=== PATIENT | male | born 1970 | race Hispanic/Latino ===

== ENCOUNTER 2017-08-29 01:09 | Emergency (ER) | payer BC ==
[2017-08-29] MEDS ORDERED: methylPREDNISolone Sod Succ/PF 125 MG/2 ML VIAL ONE (01:52)
[2017-08-29] MEDS ORDERED: Water For Inject, Bacteriostat 30 ML ONE (01:52)
[2017-08-29] MEDS ORDERED: Magnesium Sulfate 2 GM/100 ML BAG ONE (01:52)
[2017-08-29] MEDS ORDERED: Albuterol Sulfate 2.5 mg/3 ml Neb ONE (02:54)
[2017-08-29] MEDS ORDERED: cefTRIAXone\\ROCEPHIN 1 GM VIAL ONE (03:11)
--- NOTE | 2017-08-29 07:16 | RAD ---
PORTABLE AP CHEST: Date: 08/29/17 HISTORY: Dyspnea, wheezing, and productive cough. FINDINGS: The cardiac silhouette and pulmonary vasculature are within normal limits. Lungs are clear. Osseous structures are intact. There are linear densities seen in the medial right lung base, probably relat ed to superimposition of structures and vasculature. Lungs are otherwise clear. Osseous structures a re intact. IMPRESSION: No acute cardiopulmonary process. POS: [facility]
== END 2017-08-29 04:00 | disposition home or self-care (01) ==
LOC: ERS 01:09
DX: J45.901 Unspecified asthma with (acute) exacerbation (principal)
CPT/HCPCS: 71010; 93005; 94640; 94760; 96365; 96367; 96375; J0696; J2930; J3475; J7611; J7620

== ENCOUNTER 2018-05-08 14:29 | Outpatient (CLI) | payer BC | END 2018-05-08 14:30 | disposition home or self-care (01) | LOC: BICRAD 14:29 | PROVIDERS: ATTEND Family Medicine | DX: R10.11 Right upper quadrant pain (principal); R07.9 Chest pain, unspecified; R53.83 Other fatigue; E11.9 Type 2 diabetes mellitus without complications; K59.00 Constipation, unspecified | CPT/HCPCS: 71046; 74019 ==

== ENCOUNTER 2018-07-10 20:13 | Inpatient (IN) | payer BC ==
[2018-07-10 21:01] LABS: Hemoglobin 5.9 g/dL (14.0-18.0); Mean Corpuscular HGB CONC 34.3 g/dL (32.0-36.0); Mean Corpuscular Hemoglobin 35.6 pg (27.0-31.0); RBC Distribution Width 17.7 % (11.5-14.5); Red Blood Cell (RBC) Count 1.66 mill/uL (4.70-6.10); White Blood Cell (WBC) Count 4.4 thou/uL (4.8-10.8)
[2018-07-10 21:17] LABS: ALT (SGPT) 9 U/L (8-55); AST (SGOT) 16 U/L (5-34); Albumin 3.8 g/dL (3.5-5.0); Alkaline Phosphatase 68 U/L (40-150); Anion Gap 15 mmol/L (10-20); BUN (Urea Nitrogen) 16 mg/dL (8.9-20.6); Bilirubin, Total 0.5 mg/dL (0.2-1.2); Calc. Creatinine Clearance 0 mL/min (70-130); Calcium 9.3 mg/dL (7.8-10.44); Carbon Dioxide 29 mmol/L (22-29); Chloride 100 mmol/L (98-107); Estimated GFR-MDRD 86; Globulin 3.3 g/dL (2.4-3.5); Glucose 117 mg/dL (70-105); Protein, Total 7.1 g/dL (6.0-8.3); Sodium 140 mmol/L (136-145)
[2018-07-10 21:22] LABS: Band 6 % (5-11); Hypochromia MODERATE=16-30 cells (100X) (0-5/hpf); Lymphocytes 72 % (21-51); MDiff Complete? YES; Macrocytosis SLIGHT = 6-15 cells (100X) (0-5/hpf); Mean Platelet Volume 6.4 fL (7.4-10.4); Neutrophil 20 % (42-75); Nucleated RBC 0 % (0); PLT Morphology Comment Appears Decreased; Platelet Count 52 thou/uL (130-400); Polychromasia SLIGHT = 2-3 cells (100X) (0-2/hpf); Reactive Lymphocytes 2 % (0-10); Reflex for Review?? YES
[2018-07-11] MEDS ORDERED: Ondansetron ODT 4 MG TAB SL PRN
[2018-07-11] MEDS ORDERED: Acetaminophen 325 MG TAB PO PRN
[2018-07-11] MEDS ORDERED: Ondansetron HCl/PF 4 MG/2 ML Vial IVP PRN
[2018-07-11 01:59] LABS: INR-International Normal Ratio 1.2; PTT 43.9 SEC (22.9-36.1); Prothrombin Time 14.9 SEC (12.0-14.7)
[2018-07-11] MEDS ORDERED: ADMIXTURE FEE CHEMO IVP SCH (03:00)
[2018-07-11] MEDS ORDERED: PANTOPRAZOLE IVP SCH (03:00)
[2018-07-11] MEDS ORDERED: SODIUM CHLORIDE 0.9% IVP SCH (03:00)
[2018-07-11 05:53] LABS: Hemoglobin 8.4 g/dL (14.0-18.0)
[2018-07-11] MEDS ORDERED: Iopamidol 370 76% 100 ML VIAL ONE (08:48)
[2018-07-11] MEDS: Pantoprazole 40 MG VIAL IVP SCH ×2 (09:35→20:45)
[2018-07-11 10:18] LABS: Reticulocyte Count 3.6 % (0.5-1.5)
[2018-07-11 10:27] LABS: ALT (SGPT) 9 U/L (8-55); AST (SGOT) 12 U/L (5-34); Albumin 3.8 g/dL (3.5-5.0); Alkaline Phosphatase 64 U/L (40-150); Anion Gap 11 mmol/L (10-20); BUN (Urea Nitrogen) 15 mg/dL (8.9-20.6); Bilirubin, Total 0.7 mg/dL (0.2-1.2); Calc. Creatinine Clearance 115 mL/min (70-130); Calcium 9.5 mg/dL (7.8-10.44); Carbon Dioxide 27 mmol/L (22-29); Chloride 103 mmol/L (98-107); Estimated GFR-MDRD Greater than 90; Globulin 3.4 g/dL (2.4-3.5); Glucose 134 mg/dL (70-105); LDH 381 U/L (125-220); Potassium 3.9 mmol/L (3.5-5.1); Protein, Total 7.2 g/dL (6.0-8.3); Sodium 137 mmol/L (136-145)
[2018-07-11] MEDS: Dextrose 5 % And 0.9 % NaCl 1,000 ML IV SCH ×2 (10:37→20:44)
[2018-07-11 12:11] LABS: Hemoglobin 8.7 g/dL (14.0-18.0)
[2018-07-11 12:31] LABS: Iron 93 ug/dL (65-175); Iron Binding Capacity, Total 220 mcg/dL (261-462)
--- NOTE | 2018-07-11 12:36 | RAD ---
CHEST TWO VIEWS: HISTORY: Shortness of breath. COMPARISON: Chest radiograph from 2017. FINDINGS: The lungs are clear. No pneumothorax or effusion. The cardiac silhouette and mediastinal contour ar e within normal limits. IMPRESSION: No acute intrathoracic abnormality. POS: [facility]
--- NOTE | 2018-07-11 13:08 | CT ---
CT ABDOMEN AND PELVIS WITH CONTRAST: HISTORY: Anemia. Pancytopenia. COMPARISON: None. FINDINGS: There is atelectasis in the lower lobes. On the axial image, there appears to be a nodule in the lef t lung base (axial image 15), although this is likely reflective of a focal area of round atelectasis . Small volume perihepatic fluid. Small volume free fluid in the pelvis. There is some low grade flui d, retroperitoneal, along the left iliac vessels. There is a mildly prominent left external iliac ly mph node, measuring 8 mm in short axis. The common iliac lymph node measures 1 cm in short axis. Th e distal retroperitoneal and periaortic lymph nodes measure up to 8 mm in short axis. The spleen is enlarged, measuring almost 14 cm in size. The liver is unremarkable. Small volume fluid in the righ t paracolic gutter. The appendix is visualized and is normal. Abnormal bilateral common femoral lymph nodes are present, measuring up to 1.6 cm in size. Superfici al inguinal and deep inguinal lymph nodes are also present. No hydronephrosis. A cyst is present in the left kidney. Normal proximal small bowel rotation. The skeleton is unremarkable. IMPRESSION: 1. Abnormal deep pelvic, as well as inguinal lymph nodes, along with small volume retroperitoneal fl uid. Findings concerning for an underlying lymphoproliferative disorder, such as lymphoma. Testicul ar cancer could also be a possibility. Recommend correlation with a testicular examination. Histolo gical examination of the inguinal lymph nodes is recommended. 2. Small volume perihepatic ascites, as well as splenomegaly. This may be due to the patient's unde rlying lymphoproliferative disorder. CODE T POS: [facility]
[2018-07-11 13:14] LABS: Bilirubin Negative (Negative); Blood, Urine Negative (Negative); Clarity CLEAR (Clear); Glucose, Urine (Dipstick) Negative (Negative); Leukocyte Negative (Negative); Nitrite Negative (Negative); Protein, Urine (Dipstick) Negative (Neg-Trace)
[2018-07-11 13:17] LABS: Bacteria/HPF None Seen HPF (None Seen); Hyaline Casts/LPF 0-3 HYALINE CAST LPF (0-3 Hyaline); Pathc Cast-AUWi Flag 0.14 (0-2.49); RBC/HPF 0-3 HPF (0-3); Squamous Epithelial 0-3 HPF (0-3); WBC/HPF 0-3 HPF (0-3)
[2018-07-11 13:18] LABS: Specific Gravity, Urine 1.055 (1.002-1.036)
--- NOTE | 2018-07-11 13:46 | EKG ---
Test Reason : DIZZY,WEAK Blood Pressure : / mmHG Vent. Rate : 090 BPM Atrial Rate : 090 BPM P-R Int : 114 ms QRS Dur : 090 ms QT Int : 364 ms P-R-T Axes : 018 -02 020 degrees QTc Int : 445 ms Normal sinus rhythm Normal ECG Confirmed by FELICIA DOWLING, CHANTAL ([id number]), subeditor ELOY VALDEZ ([id number]) on 07/11/2018 1:45:49 PM Referred By: Confirmed By:CHANTAL DUARTE MD
[2018-07-11 14:03] LABS: ANA Symphony (Qualitative) Negative (Negative); dsDNA IgG Antibody 0.9 IU/mL (<10 Negative)
[2018-07-11 16:45] LABS: Hemoglobin 7.9 g/dL (14.0-18.0)
[2018-07-11 17:37] LABS: HIV (1/2) Antibody/Antigen Non-Reactive (NonReactive); HIV 1/2 INDEX 0.07 S/CO (<1.00)
[2018-07-11] MEDS ORDERED: Cyanocobalamin (Vitamin B-12) 1,000 MCG TAB PO SCH (18:00)
--- NOTE | 2018-07-11 19:21 | HP ---
CHIEF COMPLAINT: Generalized weakness. HISTORY OF PRESENT ILLNESS: The patient is a very pleasant 47-year-old male who presents to the ER w ith presence of generalized weakness, shortness of breath. The patient is a Australian speaking and the patient stated that this symptom started about a month ago. The patient stated that initially he pr esented with some right upper quadrant pain. At this time, he was told that he was a prediabetic and was not sent home with any medications. The patient was only given some stool softeners and also wa s given some pain medication and then was sent home. The patient then reappeared a week ago to dain nelson physician at [facility] for appearing very pale and also just not feeling well overall. At this time, blood test was done and the patient was stated that he was anemic and was sent home wi th iron supplements. The patient presents today to the hospital for worsening weakness and also appe ared to be more pale than usual. In the ER, he was found to have anemia of 5.8 and also his rectal e xam indicated positive Hemoccult. The patient denies any fevers; however, he did have some chills to day. The patient states that he has lost a few pounds; however, he is trying to eat more healthy sin ce he was told that he was a prediabetic. The patient denies any change in his stool. He took only 2 Advil for the abdominal pain that he had, this was a few days ago. The patient states that this barth s never happened to him before. He has never had a colonoscopy in the past. PAST MEDICAL HISTORY: History of asthma. SOCIAL HISTORY: He drinks 1-2 beer a month. Denies any drug use or smoking history. ALLERGIES: He has got no known allergies. CURRENT MEDICATIONS: The patient states that he does take an inhaler and also takes stool softener a nd pain medication which he does not know the name of. REVIEW OF SYSTEMS: All negative except for the ones mentioned above in the HPI. PHYSICAL EXAMINATION: VITAL SIGNS: Blood pressure 143/77, pulse 94, respiratory rate 18, temperature 98.3, saturation 99% on room air. GENERAL: He appeared to be pale. He is awake, alert, oriented x3, does not deny any distress. CARDIOVASCULAR: S1, S2 present. No murmurs, rubs or gallops. LUNGS: Clear to auscultation. No rhonchi or wheezes noted. ABDOMEN: Soft, nontender. Bowel sounds are present x2. EXTREMITIES: No edema. Pedal pulses present x2. LABORATORY DATA: Laboratory results are as of the following: WBC of 4.4, hemoglobin of 5.9, hematoc rit of 17.2, platelets of 52. He has lymphocytes of 72. Chemistry: Sodium of 137, potassium of 3.9 , BUN of 16, creatinine 0.93. His LFTs were normal. ASSESSMENT AND PLAN: The patient is a very pleasant 47-year-old male who presented to the hospital w ith generalized weakness. 1. Pancytopenia. The differential includes possible malignancy versus viral versus medication relat ed versus either vitamin B12 or iron deficiency. Given the patient's pancytopenia which is pretty si gnificant, I have no previous labs for comparison. We will get labs from [employer] to see what his baseline was. The patient also gets physicals every 6 months for his job. I will also get those re sults. We will check an LDH. We will check a reticular count. We will check a vitamin B12 level. We will check iron, folic acid, and ferritin level. We will also get a CT abdomen and pelvis. I am not sure, this is hemolytic. However, patient's LFTs and bilirubin are completely normal. We will a lso check haptoglobin to just make sure. We will also check an HIV and based on the CAT scan, we kathi l see if we can order more testing. Malignancy is definitely an issue. GI has been consulted. We w ill await further workup. 2. Significant anemia as MCV is 104, appears to be megaloblastic. We will check a vitamin B12 level and also iron studies and we will go from there. 3. Deep venous thrombosis prophylaxis. We will put the patient on sequential compression devices.
[2018-07-12 00:09] LABS: Hemoglobin 9.2 g/dL (14.0-18.0)
[2018-07-12] MEDS ORDERED: GoLYTELY 4,000 ml Bottle PO SCH (02:00)
--- NOTE | 2018-07-12 07:02 | CON ---
DATE OF CONSULTATION: 07/11/2018 REASON FOR CONSULTATION: Anemia, possible melena. CONSULTING PHYSICIAN: Dr. Nita Duffy HISTORY OF PRESENT ILLNESS: The patient is a 47-year-old male with past medical history of asthma wh o is presenting with complaints of weakness, shortness of breath and noted to have a decreased H&H on admission. The patient is Albanian speaking only, with some elements of the HPI difficult to underst and, but per patient, he states that he has been having increased generalized weakness and shortness of breath that has been present for approximately the last month. He states that it has been progres sively worsening over the same time period to the point where he visited his primary care physician's office who ordered routine blood tests, were noted to be anemic and sent home with iron supplements; however, he continued to have worsening weakness as well as the appearance of hematochezia x1 yester day, characterized as bright red blood per rectum that was present primarily only on the toilet paper , not necessarily in the toilet, but was also associated with increased straining in order to facilit ate having a bowel movement. He also endorses increased rectal pain that is sharp in nature and that would occur with most bowel movements within the last 2-3 days. Upon questioning these symptoms hav e never occurred to him in the past. He denies a family history of colon polyps or colon cancer and he himself has never had a colonoscopy in the past. Currently, denies any nausea, vomiting, fevers, chills, abdominal pain, hematemesis, dysphagia, odynophagia or weight loss. Of note, after he was started on the iron supplements as an outpatient by his primary care physician he did notice some darker colored stools, but did not necessarily endorse any black stools. REVIEW OF SYSTEMS: A 10-category review of systems was obtained with all responses negative except f or the pertinent positives as listed in the HPI. PAST MEDICAL HISTORY: As per HPI. PAST SURGICAL HISTORY: None. FAMILY HISTORY: Denies any GI malignancies. SOCIAL HISTORY: Denies any tobacco or illicit drug use. Drinks approximately 1-2 beers per month. OUTPATIENT MEDICATIONS: States that he takes an inhaler and a stool softener, but cannot remember th e names. ALLERGIES: No known drug allergies. PHYSICAL EXAMINATION: VITAL SIGNS: Temperature 99.2, pulse 72, blood pressure 121/68, respiratory rate 21, satting 98% gris m air. GENERAL: The patient is lying comfortably in bed in no acute distress. He is alert and oriented x4. NECK: Supple. No JVD noted. CARDIOVASCULAR: Regular rate and rhythm with no discernible murmurs, gallops or rubs. LUNGS: Clear to auscultation bilaterally, no discernible wheezes or rales. ABDOMEN: Normoactive bowel sounds, soft, nontender, nondistended. EXTREMITIES: No cyanosis, clubbing or edema. LABORATORY DATA: CBC with a white blood cell count of 4.4, hemoglobin 5.9, hematocrit 17.2, platelet s 52. Chemistry with a sodium of 137, potassium 3.9, chloride 103, CO2 of 27, BUN 15, creatinine 0.8 1, glucose 134, AST 12, ALT 9, alkaline phosphatase 64, total bilirubin 0.7. INR 1.2. Iron 93, ferr itin 890, TIBC 220, and reticulocyte count 3.6%. IMAGING DATA: CT of the abdomen and pelvis obtained on 07/11/2018 showed the presence of abnormal de ep pelvic as well as inguinal lymph nodes with small volume retroperitoneal fluid concerning for an u nderlying lymphoproliferative disorder such as lymphoma. They also noted small volume perihepatic as cites as well as splenomegaly which could also be due to the aforementioned lymphoproliferative disor delfina; however, the liver was unremarkable. There were some common femoral lymph nodes present as well . ASSESSMENT AND PLAN: The patient is a 47-year-old male with past medical history of asthma presentin g with increased weakness, fatigue, significant anemia as well as hematochezia concerning for possibl e GI bleeding source. 1. Anemia. The patient is presenting with worsening symptoms of fatigue and weakness that have been present for the last month, but progressively worsening over this time. However, he has also been h aving increased rectal pain for the last 5-6 days as well as the occurrence of hematochezia x1 yester day with significant anemia on labs today. There was also some question as part of the chart review that he had had some melenic type stools, but it seems to be more related to iron supplement administ ration which could definitely contribute to this particular issue. However, with these darker colore d stools with his hematochezia, it is unclear if there is a possible GI bleeding source contributing to the aforementioned anemia and may require endoscopic intervention. Currently the differential cou ld include an upper or lower GI bleeding source, although with the CT abdomen and pelvis showing mult iple enlarged lymph nodes throughout the body and lymphoma or leukemia is a more likely explanation. RECOMMENDATIONS: 1. We would continue to trend H&H and transfuse as necessary to maintain an H&H of 7/21. 2. Would continue to monitor for signs of GI bleeding. 3. Would proceed with both upper and lower endoscopy tomorrow for evaluation of the GI tract for pos sible bleeding source. We will make the patient n.p.o. at midnight with GoLYTELY prep in preparation for the colonoscopy. 4. Would consider consultation of the Hematology Service for evaluation of the macrocytic anemia as well as enlarged lymph nodes concerning for lymphoma/lymphoproliferative disorder. 5. If the above EGD and colonoscopy are negative for overt pathology, capsule endoscopy would not be indicated at this time, but rather would seek a non-GI source of anemia. 6. We will continue to follow. Please call with any questions.
[2018-07-12] MEDS ORDERED: Cyanocobalamin (Vitamin B-12) 1,000 MCG TAB PO SCH (09:00)
[2018-07-12] MEDS: Dextrose 5 % And 0.9 % NaCl 1,000 ML IV SCH ×3 (09:44→22:53)
[2018-07-12] MEDS: Pantoprazole 40 MG VIAL IVP SCH ×2 (09:44→21:02)
[2018-07-12 10:26] LABS: Hemoglobin 9.5 g/dL (14.0-18.0); Mean Corpuscular HGB CONC 35.4 g/dL (32.0-36.0); Mean Corpuscular Hemoglobin 34.2 pg (27.0-31.0); Mean Corpuscular Volume 96.6 fL (78.0-98.0); Mean Platelet Volume 7.5 fL (7.4-10.4); Platelet Count 51 thou/uL (130-400); RBC Distribution Width 18.3 % (11.5-14.5); Red Blood Cell (RBC) Count 2.77 mill/uL (4.70-6.10); White Blood Cell (WBC) Count 3.6 thou/uL (4.8-10.8)
[2018-07-12 10:41] LABS: ALT (SGPT) 8 U/L (8-55); AST (SGOT) 12 U/L (5-34); Albumin 4.1 g/dL (3.5-5.0); Alkaline Phosphatase 68 U/L (40-150); Anion Gap 11 mmol/L (10-20); BUN (Urea Nitrogen) 13 mg/dL (8.9-20.6); Bilirubin, Total 0.7 mg/dL (0.2-1.2); Calc. Creatinine Clearance 109 mL/min (70-130); Calcium 9.8 mg/dL (7.8-10.44); Carbon Dioxide 28 mmol/L (22-29); Chloride 101 mmol/L (98-107); Estimated GFR-MDRD Greater than 90; Globulin 3.7 g/dL (2.4-3.5); Glucose 129 mg/dL (70-105); Potassium 3.9 mmol/L (3.5-5.1); Protein, Total 7.8 g/dL (6.0-8.3); Sodium 136 mmol/L (136-145)
[2018-07-12 10:53] LABS: Anisocytosis SLIGHT = 6-15 cells (100X) (0-5/hpf); Band 6 % (5-11); Lymphocytes 62 % (21-51); MDiff Complete? YES; Monocytes 3 % (0-10); Neutrophil 26 % (42-75); Nucleated RBC 1 % (0); PLT Morphology Comment Appears Decreased; Polychromasia SLIGHT = 2-3 cells (100X) (0-2/hpf); Reactive Lymphocytes 2 % (0-10)
[2018-07-12] MEDS ORDERED: Cyanocobalamin 1000 MCG/ML VIAL IM SCH ×2 (11:30→16:45)
--- NOTE | 2018-07-12 13:12 | CON ---
DATE OF CONSULTATION: 07/12/2018 REASON FOR CONSULTATION: Anemia with lymphocytosis and lymphadenopathy. HISTORY OF PRESENT ILLNESS: Mr. Márquez is a pleasant 47-year-old Sami speaking only male who pres ented to the emergency room with weakness and shortness of breath started approximately 1 month ago a nd increased over the last few weeks. He also has had an 8 pound weight loss over these last few wee ks. In the emergency room, his white count was 4.4. His hemoglobin was 5.9 and his platelet count w as 52,000. He had 20% neutrophils and 72% lymphocytes. He was transfused 2 units of blood. The pat ient states he has seen bright red blood in his stool over the last few weeks. He saw his primary ca re 2 weeks ago and was started on oral iron for anemia. He had iron studies and B12 level drawn here , his B12 was low at 209. His iron studies were normal. He has been started on B12 injections. The patient admits to occasional night sweats. Denies any fever or chills. Abdominal CT performed show ed abnormal pelvic lymph nodes. He also had a small volume perihepatic ascites as well as mild splen omegaly. GI has seen the patient and is planning endoscopy today. To assist with it, we were asked to see the patient to assist with diagnosis. PAST MEDICAL HISTORY: 1. Asthma. 2. Recent diagnosis of anemia. PAST SURGICAL HISTORY: None. ALLERGIES: No known drug allergies. HOME MEDICATIONS: 1. Inhaler. 2. Oral iron and stool softener. FAMILY HISTORY: No history of lymphoma or GI malignancy. SOCIAL HISTORY: He is , lives with his spouse. Social drinker, drinking occasional beer. No alcohol or illicit drug use. REVIEW OF SYSTEMS: CONSTITUTIONAL: Denies fever, positive for chills and night sweats and recent weight loss. EYES: No blurred or double vision. ENT: No pain, hoarseness, sore throat, or dysphagia. CARDIOVASCULAR: No chest pain, palpitations or syncope. RESPIRATORY: Positive for shortness of breath, no dyspnea on exertion or orthopnea. GASTROINTESTINAL: No nausea, vomiting, diarrhea, constipation or abdominal pain. Positive for poor appetite. GENITOURINARY: No dysuria or hematuria. MUSCULOSKELETAL: No joint or back pain. SKIN: No rash or pruritus. HEMATOLOGIC: Positive for bleeding, no bruising or clotting. NEUROLOGIC: Positive for weakness, no headache, numbness, tingling or seizure activity. PSYCHIATRIC: No anxiety or depression. PHYSICAL EXAMINATION: VITAL SIGNS: Temperature is 98.1, pulse is 77, respiratory rate 18, BP is 131/71, 95% on room air. GENERAL: Well-developed, well-nourished male in no acute distress. HEENT: Normocephalic, atraumatic. Pupils equal and reactive to light. NECK: Supple. CARDIOVASCULAR: Regular rate and rhythm. LUNGS: Clear. ABDOMEN: Soft, nontender, bowel sounds are positive. No palpable organomegaly. EXTREMITIES: No clubbing, cyanosis or edema. SKIN: No rash. HEMATOLOGIC: No petechia or purpura. LYMPHATIC: He has palpable right inguinal lymph nodes. No other lymphadenopathy noted. NEUROLOGIC: Nonfocal. PSYCHIATRIC: The patient is alert and oriented and appropriate. PERTINENT LABORATORY DATA AND IMAGING DATA: Current WBCs 3.6, hemoglobin 9.5, hematocrit 26.7, plate let count 51,000, 26% neutrophils, 6% bands, 64% lymphocytes. Retic is 3.6. PT is 14.9, INR is 1.2, PTT is 43.9. Sodium is 136, potassium 3.9, chloride 101, CO2 is 28, BUN is 13, creatinine 0.84, sarai cium 9.8, ferritin is 893, bilirubin 0.7, AST is 12, ALT is 9, alkaline phosphatase is 64. LDH is 38 1. Serum total protein is 7.2, albumin 3.8. AFP is negative. HCG is negative, B12 209. Urine is n egative. YESI is normal as his HIV. Radiology per HPI. IMPRESSION: 1. Pancytopenia. 2. B12 deficiency. 3. Lymphocytosis with right inguinal lymphadenopathy. 4. Possible gastrointestinal bleed. DISCUSSION: Patient's B12 will be repeated with iron injections. He has undergone prepped for endos copy which will be this afternoon, also done flow cytometry on peripheral blood. We will also have [facility] to evaluate the patient for possible lymph node biopsy of his right inguinal chain. F urther recommendations will be based on all the above results. Thank you for the consult. We will follow him closely.
--- NOTE | 2018-07-12 14:17 | PDOC.PN ---
- Subjective Encounter Start Date: 07/12/18 Encounter Start Time: :30 Subjective: pt up in bed no complains - Objective Vital Signs & Weight: Vital Signs (12 hours) Temp Pulse Resp BP Pulse Ox 07/12/18 07:51 98.1 F 77 18 95 07/12/18 07:50 98.1 F 77 18 131/71 95 07/12/18 04:00 98.4 F 75 20 136/82 95 Weight Admit Weight 162 lb 1.6 oz Weight 159 lb 4.8 oz I&O: 07/11/18 07/12/18 07/13/18 06:59 06:59 06:59 Intake Total 1114 3670 Balance 1114 3670 Result Diagrams: 07/12/18 10:01 07/12/18 10:01 Phys Exam - Physical Examination Neck: no nodes, no JVD, supple, full ROM Respiratory: no wheezing, no rales, no rhonchi, wheezing present, clear to auscultation bilateral Cardiovascular: RRR, no significant murmur, no rub, gallop, irregular Gastrointestinal: soft, non-tender, no distention, positive bowel sounds Dx/Plan (1) Pancytopenia Code(s): D61.818 - OTHER PANCYTOPENIA Status: Acute (2) Melena Code(s): K92.1 - MELENA Status: Acute - Plan pt going for egd/colonoscopy -: will go for biopsy with concerns for lymphoma -: hh stable for now -: will replace vit b12 * . Review of Systems - Review of Systems Respiratory: negative: Cough, Dry, Shortness of Breath, Hemoptysis, SOB with Excertion, Pleuritic Pain, Sputum, Wheezing Cardiovascular: negative: chest pain, palpitations, orthopnea, paroxysmal nocturnal dyspnea, edema, light headedness, other Genitourinary: negative: Dysuria, Frequency, Incontinence, Hematuria, Retention , Other - Medications/Allergies Allergies/Adverse Reactions: Allergies Allergy/AdvReac Type Severity Reaction Status Date / Time No Known Allergies Allergy Unverified 07/10/18 23:51 Medications: Current Medications Cyanocobalamin (Vitamin B-12) 1,000 mcg IM DAILY [facility] Dextrose/Sodium Chloride (D5 0.9% Ns) 1,000 mls @ 100 mls/hr IV .Q10H [facility] Last Admin: 07/12/18 09:44 Dose: Not Given Pantoprazole Sodium (Protonix) 40 mg IVP BID [facility] Last Admin: 07/12/18 09:44 Dose: 40 mg Sodium Chloride (Flush - Normal Saline) 10 ml IVF Q12HR [facility] Last Admin: 07/12/18 09:44 Dose: 10 ml Sodium Chloride (Flush - Normal Saline) 10 ml IVF PRN PRN PRN Reason: Saline Flush
[2018-07-12] MEDS ORDERED: Lidocaine 1% PF 5 ML VIAL ONE (14:27)
[2018-07-12] MEDS ORDERED: PROPOFOL 200 MG/20 ML VIAL ONE (14:27)
--- NOTE | 2018-07-12 15:56 | CON ---
DATE OF CONSULTATION: 07/12/2018 REASON FOR CONSULTATION: Lymphadenopathy. HISTORY: Mr. Márquez is a 47-year-old previously healthy man who presented to the emergency room feel ing weak and short of breath. He was found to be severely anemic and was admitted for transfusion an d workup. He reported a history of blood in his stool and he underwent an EGD and colonoscopy today that was unremarkable. He was incidentally noted to have some lymphadenopathy in the inguinal and fe moral areas as well as retroperitoneally, and a lymph node biopsy has been requested for this reason. The patient has not noticed any swollen lymph nodes, so he is unaware of how long they have been pr esent. He has had night sweats and about 10 pounds of weight loss. He was previously seen at the [facility] for his feelings of low energy and was diagnosed with prediabetes, but he is not on any m edications for this. He was then diagnosed with anemia and given iron supplements, but his anemia barth s worsened. PAST MEDICAL HISTORY: Asthma. SOCIAL HISTORY: He drinks occasionally, does not smoke or use any drugs. ALLERGIES: He has no known drug allergies. OUTPATIENT MEDICATIONS: As an inhaler as needed and stool softener. REVIEW OF SYSTEMS: Ten system review of systems is negative except per HPI. FAMILY HISTORY: Negative for malignancy, only known medical issue is diabetes in his father. PHYSICAL EXAMINATION: VITAL SIGNS: The patient has been afebrile since his admission. Heart rate is 83, respirations 18, 98% saturated on room air, blood pressure 122/83. GENERAL: Reveals a healthy appearing 47-year-old man, in no acute distress. He is not flushed or to xic in appearance. He is not jaundiced or icteric. He is not pale or diaphoretic. HEENT: Unremarkable. NECK: Supple without lymphadenopathy or thyroid nodules. HEART: Regular in its rate and rhythm without murmurs, rubs or gallops. LUNGS: Clear to auscultation bilaterally with good air entry. ABDOMEN: Soft, nontender, nondistended, no palpable hepatosplenomegaly. EXTREMITIES: Warm and well perfused. He has palpable inguinal lymph nodes on both sides, left great er than right. No axillary or supraclavicular lymphadenopathy. LABORATORY AND X-RAY FINDINGS: CT images are reviewed and I agree with the written report. LABORATORY DATA: White count is low at 3.6, H&H are 95 and 26.7, this is after 2 units transfusion f or an initial H&H of 5.9 and 17.2, platelet count is 51. He does have a predominance of lymphocytes on his peripheral smear with 62% lymphocytes and 26% neutrophils. PTT is 43.9 and INR is 1.2, BUN an d creatinine are normal at 13 and 0.84. Blood glucose is slightly elevated at 129. LFTs are normal. LDH is high at 381. B12 is low at 209. AST is 2.1 and hCG is less than 1. ASSESSMENT: Anemia and bilateral inguinal and retroperitoneal intra-abdominal lymphadenopathy. He h as had weight loss and night sweats and there is concern for lymphoma. GI workup is negative thus fa r schedule for tomorrow for a left inguinal lymph node biopsy. Inherent risks of the procedure include but are not limited to bleeding, infection, risks of anesthesia, damage to nearby structures , and lymphedema. He understands and accepts these risks and wishes to proceed. All of his and his 's questions were answered. The interview was conducted using a Salvadorean speech and language assistant.
--- NOTE | 2018-07-12 16:04 | OP ---
DATE OF PROCEDURE: 07/12/2018 PREOPERATIVE DIAGNOSES: Hemoccult positive stools, anemia secondary to gastrointestinal blood loss, lymphadenopathy. PROCEDURE IN DETAIL: After informed consent was obtained, the patient was placed in the left lateral decubitus position. Anesthesia administered per the Anesthesia Department. Forward-viewing endosco pe was inserted into esophagus under direct visualization with ease and passed to the second portion of the duodenum with ease. Second portion of the duodenum and duodenal bulb were normal. The pyloru s, antrum, body, fundus and cardia were normal. Retroflexion of stomach was normal. Esophagus was n ormal throughout. ASSESSMENT: Normal esophagogastroduodenoscopy. RECOMMENDATIONS: Proceed with colonoscopy. PROCEDURE IN DETAIL: After informed consent was obtained, the patient was placed in the left lateral decubitus position. Anesthesia was administered per the Anesthesia Department. Perianal inspection and rectal exam revealed some thickening of the perianal skin, possibly secondary to previous perian al process, but this seems to be scarred and nothing acute or active. The scope was passed to the ce cum with ease. The cecum, ileocecal valve and appendiceal orifice were normal. The prep was excelle nt. The ascending, transverse, descending, sigmoid and rectum were normal. Retroflexion in the rect um was normal. ASSESSMENT: 1. Thickened perianal skin secondary to scarring from prior perianal abscess or other process, but n o active abnormalities at this time. 2. Normal colonoscopy. RECOMMENDATIONS: Proceed with workup of lymphadenopathy.
--- NOTE | 2018-07-12 16:56 | ULT ---
ULTRASOUND TESTICULAR BILATERAL 07/12/18 HISTORY: Pain. Anemia. Pancytopenia. COMPARISON: CT abdomen prior day. FINDINGS: Real time riggins scale, color doppler and spectral analysis of the testicles was performed. The right testicle measures 3.5 x 2.0 x 4.5 cm and left testicle measures 2.2 x 4.2 x 3.1 cm. There is hypervascularity to both testicles. No abnormal mass. There are abnormal lymph nodes of both inguinal canals. IMPRESSION: 1. Hypervascular testicles bilaterally. May be sequela of bilateral orchitis. No underlying mass . 2. Abormal lymph nodes. POS: H
[2018-07-13 06:21] LABS: ALT (SGPT) 9 U/L (8-55); AST (SGOT) 10 U/L (5-34); Albumin 3.9 g/dL (3.5-5.0); Alkaline Phosphatase 64 U/L (40-150); Anion Gap 13 mmol/L (10-20); BUN (Urea Nitrogen) 14 mg/dL (8.9-20.6); Bilirubin, Total 0.5 mg/dL (0.2-1.2); Calc. Creatinine Clearance 106 mL/min (70-130); Calcium 9.6 mg/dL (7.8-10.44); Carbon Dioxide 24 mmol/L (22-29); Estimated GFR-MDRD Greater than 90; Globulin 3.8 g/dL (2.4-3.5); Glucose 108 mg/dL (70-105); Potassium 3.9 mmol/L (3.5-5.1); Protein, Total 7.7 g/dL (6.0-8.3); Sodium 140 mmol/L (136-145)
[2018-07-13 06:40] LABS: Chloride 107 mmol/L (98-107)
[2018-07-13 06:42] LABS: Band 11 % (5-11); Hemoglobin 9.5 g/dL (14.0-18.0); Lymphocytes 69 % (21-51); MDiff Complete? YES; Mean Corpuscular HGB CONC 34.5 g/dL (32.0-36.0); Mean Corpuscular Hemoglobin 33.7 pg (27.0-31.0); Mean Corpuscular Volume 97.8 fL (78.0-98.0); Mean Platelet Volume 7.6 fL (7.4-10.4); Monocytes 4 % (0-10); Neutrophil 15 % (42-75); Nucleated RBC 1 % (0); PLT Morphology Comment Appears Decreased; Platelet Count 55 thou/uL (130-400); RBC Distribution Width 18.2 % (11.5-14.5); Reactive Lymphocytes 1 % (0-10); Red Blood Cell (RBC) Count 2.82 mill/uL (4.70-6.10); White Blood Cell (WBC) Count 3.9 thou/uL (4.8-10.8)
[2018-07-13] MEDS: Pantoprazole 40 MG VIAL IVP SCH ×2 (09:02→19:58)
[2018-07-13] MEDS: Cyanocobalamin 1000 MCG/ML VIAL IM SCH (09:02)
[2018-07-13] MEDS ORDERED: Bupivacaine/Epinephrine 0.25% 30 ML VIAL ONE (11:22)
[2018-07-13] MEDS ORDERED: Fentanyl 100 MCG/2 ML VIAL ONE (11:27)
[2018-07-13] MEDS ORDERED: Dexamethasone 20 MG/5 ML VIAL ONE (11:44)
[2018-07-13] MEDS ORDERED: ePHEDrine/0.9% NaCl/PF SYRINGE 50 mg/10 ml ONE (11:44)
[2018-07-13] MEDS ORDERED: PROPOFOL 200 MG/20 ML VIAL ONE (11:44)
[2018-07-13] MEDS ORDERED: Lidocaine 1% PF 5 ML VIAL ONE (11:44)
[2018-07-13] MEDS ORDERED: Ondansetron HCl/PF 4 MG/2 ML Vial ONE (11:44)
[2018-07-13 12:21] VITALS: BMI 24.3
[2018-07-13] MEDS: Dextrose 5 % And 0.9 % NaCl 1,000 ML IV SCH (12:35)
[2018-07-13] MEDS ORDERED: Promethazine HCl 25 MG/ML VIAL IM PRN (12:47)
[2018-07-13] MEDS ORDERED: Promethazine HCl 25 MG/ML VIAL SLOW IVP PRN (12:47)
[2018-07-13] MEDS ORDERED: HYDROmorphone 2 MG/ML VIAL SLOW IVP PRN (12:47)
[2018-07-13] MEDS ORDERED: Ondansetron HCl/PF 4 MG/2 ML Vial IVP PRN (12:47)
[2018-07-13] MEDS: Acetaminophen 325 MG TAB PO PRN (14:37)
--- NOTE | 2018-07-13 15:10 | PDOC.PN ---
- Subjective Encounter Start Date: 07/13/18 Encounter Start Time: 09:00 Subjective: pt up in bed no complains - Objective Vital Signs & Weight: Vital Signs (12 hours) Temp Pulse Resp BP BP BP Pulse Ox 07/13/18 13:30 98.8 F 83 16 120/67 97 07/13/18 08:30 97.8 F 70 18 100/66 94 L 07/13/18 05:31 97.7 F 74 15 113/67 93 L Weight Admit Weight 162 lb 1.6 oz Weight 155 lb 3.2 oz I&O: 07/12/18 07/13/18 07/14/18 06:59 06:59 06:59 Intake Total 3670 1055 Balance 3670 1055 Result Diagrams: 07/13/18 05:01 07/13/18 05:01 Phys Exam - Physical Examination Neck: no nodes, no JVD, supple, full ROM Respiratory: no wheezing, no rales, no rhonchi, wheezing present, clear to auscultation bilateral Cardiovascular: RRR, no significant murmur, no rub, gallop, irregular Musculoskeletal: no edema, pulses present, edema present Neurological: non-focal, normal sensation, moves all 4 limbs Psychiatric: normal affect, A&O x 3 -: no redness or pain on palpation of testicles, Dx/Plan (1) Pancytopenia Code(s): D61.818 - OTHER PANCYTOPENIA Status: Acute (2) Melena Code(s): K92.1 - MELENA Status: Acute (3) Lymphadenopathy Code(s): R59.1 - GENERALIZED ENLARGED LYMPH NODES Status: Acute (4) Megaloblastic anemia Code(s): D53.1 - OTHER MEGALOBLASTIC ANEMIAS, NOT ELSEWHERE CLASSIFIED Status : Acute (5) Megaloblastic anemia due to B12 deficiency Code(s): D53.1 - OTHER MEGALOBLASTIC ANEMIAS, NOT ELSEWHERE CLASSIFIED Status : Acute - Plan will continue vit b12, pt going for lymphnode excision -: testicular ultrasound indicated hypervascular testicles -: physically no erythem or pain noted on testicles -: will not tx with abx for now. alpha feto and hcg negative * . Review of Systems - Review of Systems Cardiovascular: negative: chest pain, palpitations, orthopnea, paroxysmal nocturnal dyspnea, edema, light headedness, other Gastrointestinal: negative: Nausea, Vomiting, Abdominal Pain, Diarrhea, Constipation, Melena, Hematochezia, Other Genitourinary: negative: Dysuria, Frequency, Incontinence, Hematuria, Retention , Other - Medications/Allergies Allergies/Adverse Reactions: Allergies Allergy/AdvReac Type Severity Reaction Status Date / Time No Known Allergies Allergy Unverified 07/10/18 23:51 Medications: Current Medications Acetaminophen (Tylenol) 325 mg PO Q4H PRN PRN Reason: Headache/Fever or Pain Acetaminophen (Tylenol) 650 mg PO Q6H PRN PRN Reason: Pain 2ND LINE Last Admin: 07/13/18 14:37 Dose: 650 mg Cyanocobalamin (Vitamin B-12) 1,000 mcg IM DAILY [facility] Last Admin: 07/13/18 09:02 Dose: 1,000 mcg Fentanyl (Pacu-Sublimaze) 50 mcg SLOW IVP Q10MIN PRN PRN Reason: Moderate to Severe Pain (6-10) Stop: 07/13/18 15:48 Hydromorphone HCl (Pacu-Dilaudid) 0.5 mg SLOW IVP Q10MIN PRN PRN Reason: Moderate to Severe Pain (6-10) Stop: 07/13/18 15:48 Dextrose/Sodium Chloride (D5 0.9% Ns) 1,000 mls @ 100 mls/hr IV .Q10H [facility] Last Admin: 07/13/18 12:35 Dose: Not Given Morphine Sulfate (Pacu-Morphine Sulfate) 4 mg SLOW IVP ONE PRN PRN Reason: Moderate to Severe Pain (6-10) Stop: 07/13/18 15:48 Ondansetron HCl (Pacu-Zofran) 4 mg IVP ONE PRN PRN Reason: Nausea/Vomiting Stop: 07/13/18 15:48 Pantoprazole Sodium (Protonix) 40 mg IVP BID [facility] Last Admin: 07/13/18 09:02 Dose: 40 mg Promethazine HCl (Pacu-Phenergan) 6.25 mg SLOW IVP ONE PRN PRN Reason: Nausea/Vomiting Stop: 07/13/18 15:48 Promethazine HCl (Pacu-Phenergan) 6.25 mg IM ONE PRN PRN Reason: Nausea/Vomiting Stop: 07/13/18 15:48 Sodium Chloride (Flush - Normal Saline) 10 ml IVF Q12HR [facility] Last Admin: 07/13/18 09:01 Dose: 10 ml Sodium Chloride (Flush - Normal Saline) 10 ml IVF PRN PRN PRN Reason: Saline Flush
[2018-07-14] MEDS: Acetaminophen 325 MG TAB PO PRN ×2 (01:30→18:59)
[2018-07-14] MEDS: Dextrose 5 % And 0.9 % NaCl 1,000 ML IV SCH ×3 (03:41→20:58)
[2018-07-14] MEDS: Pantoprazole 40 MG VIAL IVP SCH ×2 (07:39→20:54)
[2018-07-14] MEDS: Cyanocobalamin 1000 MCG/ML VIAL IM SCH (07:39)
--- NOTE | 2018-07-14 10:52 | PDOC.GSPN ---
Surgery Progress Note: Subj - Subjective Narrative: Left groin incision healing well. Can follow up w me in clinic in 2 wks or prn. Fine to discharge from surgical standpoint. Surgery Progress Note: Obj - Vital signs Vital signs: Vital Signs - Most Recent Temp Pulse Resp BP Pulse Ox 97.9 F 72 18 104/62 94 L 07/14/18 07:35 07/14/18 07:35 07/14/18 07:35 07/14/18 07:35 07/14/18 07:35 Surgery Progress Note: Results - Labs Result Diagrams: 07/13/18 05:01 07/13/18 05:01
[2018-07-14 11:15] LABS: ALT (SGPT) 9 U/L (8-55); AST (SGOT) 8 U/L (5-34); Albumin 3.6 g/dL (3.5-5.0); Alkaline Phosphatase 50 U/L (40-150); Anion Gap 13 mmol/L (10-20); BUN (Urea Nitrogen) 18 mg/dL (8.9-20.6); Bilirubin, Total 0.3 mg/dL (0.2-1.2); Calc. Creatinine Clearance 108 mL/min (70-130); Carbon Dioxide 22 mmol/L (22-29); Chloride 109 mmol/L (98-107); Estimated GFR-MDRD Greater than 90; Globulin 3.1 g/dL (2.4-3.5); Glucose 148 mg/dL (70-105); Protein, Total 6.7 g/dL (6.0-8.3); Sodium 140 mmol/L (136-145)
[2018-07-14 11:19] LABS: Band 12 % (5-11); Hemoglobin 8.6 g/dL (14.0-18.0); Lymphocytes 65 % (21-51); MDiff Complete? YES; Mean Corpuscular Hemoglobin 34.9 pg (27.0-31.0); Mean Corpuscular Volume 99.8 fL (78.0-98.0); Mean Platelet Volume 7.5 fL (7.4-10.4); Metamyelocyte 1 % (0-0); Neutrophil 22 % (42-75); Nucleated RBC 2 % (0); Platelet Count 44 thou/uL (130-400); Red Blood Cell (RBC) Count 2.45 mill/uL (4.70-6.10); Toxic Granulation SLIGHT; White Blood Cell (WBC) Count 3.4 thou/uL (4.8-10.8)
--- NOTE | 2018-07-14 19:55 | PDOC.PN ---
- Subjective Encounter Start Date: 07/14/18 Encounter Start Time: 12:30 Subjective: pt up in bed complains of pain to his right groin area - Objective Vital Signs & Weight: Vital Signs (12 hours) Temp Pulse Resp BP BP Pulse Ox 07/14/18 15:47 97.5 F L 70 18 107/58 L 95 07/14/18 11:45 99.3 F 70 18 108/60 94 L Weight Admit Weight 162 lb 1.6 oz Weight 156 lb 12.8 oz I&O: 07/13/18 07/14/18 07/15/18 06:59 06:59 06:59 Intake Total 1055 1560 1920 Balance 1055 1560 1920 Result Diagrams: 07/14/18 10:27 07/14/18 10:27 Phys Exam - Physical Examination HEENT: PERRLA, moist MMs, sclera anicteric, TM's clear, oral pharynx no lesions , 2+ tonsils Neck: no nodes, no JVD, supple, full ROM Respiratory: no wheezing, no rales, no rhonchi, wheezing present, clear to auscultation bilateral Cardiovascular: RRR, no significant murmur, no rub, gallop, irregular Gastrointestinal: soft, non-tender, no distention, positive bowel sounds groin incision intact Dx/Plan (1) Pancytopenia Code(s): D61.818 - OTHER PANCYTOPENIA Status: Acute (2) Melena Code(s): K92.1 - MELENA Status: Acute (3) Lymphadenopathy Code(s): R59.1 - GENERALIZED ENLARGED LYMPH NODES Status: Acute (4) Megaloblastic anemia Code(s): D53.1 - OTHER MEGALOBLASTIC ANEMIAS, NOT ELSEWHERE CLASSIFIED Status : Acute (5) Megaloblastic anemia due to B12 deficiency Code(s): D53.1 - OTHER MEGALOBLASTIC ANEMIAS, NOT ELSEWHERE CLASSIFIED Status : Acute - Plan pt having pain around his left groin area -: possible discharge on monday once biopsy results have obtained * . Review of Systems - Review of Systems Respiratory: negative: Cough, Dry, Shortness of Breath, Hemoptysis, SOB with Excertion, Pleuritic Pain, Sputum, Wheezing Cardiovascular: negative: chest pain, palpitations, orthopnea, paroxysmal nocturnal dyspnea, edema, light headedness, other Gastrointestinal: negative: Nausea, Vomiting, Abdominal Pain, Diarrhea, Constipation, Melena, Hematochezia, Other Genitourinary: Other - Medications/Allergies Allergies/Adverse Reactions: Allergies Allergy/AdvReac Type Severity Reaction Status Date / Time No Known Allergies Allergy Unverified 07/10/18 23:51 Medications: Current Medications Acetaminophen (Tylenol) 325 mg PO Q4H PRN PRN Reason: Headache/Fever or Pain Acetaminophen (Tylenol) 650 mg PO Q6H PRN PRN Reason: Pain 2ND LINE Last Admin: 07/14/18 18:59 Dose: 650 mg Cyanocobalamin (Vitamin B-12) 1,000 mcg IM DAILY [facility] Last Admin: 07/14/18 07:39 Dose: 1,000 mcg Dextrose/Sodium Chloride (D5 0.9% Ns) 1,000 mls @ 100 mls/hr IV .Q10H [facility] Last Admin: 07/14/18 07:39 Dose: 1,000 mls Pantoprazole Sodium (Protonix) 40 mg IVP BID [facility] Last Admin: 07/14/18 07:39 Dose: 40 mg Sodium Chloride (Flush - Normal Saline) 10 ml IVF Q12HR [facility] Last Admin: 07/14/18 08:46 Dose: Not Given Sodium Chloride (Flush - Normal Saline) 10 ml IVF PRN PRN PRN Reason: Saline Flush
[2018-07-15] MEDS: Acetaminophen 325 MG TAB PO PRN ×4 (05:53→21:11)
[2018-07-15] MEDS: Dextrose 5 % And 0.9 % NaCl 1,000 ML IV SCH (08:09)
[2018-07-15] MEDS: Cyanocobalamin 1000 MCG/ML VIAL IM SCH (08:17)
[2018-07-15] MEDS: Pantoprazole 40 MG VIAL IVP SCH ×2 (08:17→21:12)
[2018-07-15 09:44] LABS: Anion Gap 11 mmol/L (10-20); BUN (Urea Nitrogen) 18 mg/dL (8.9-20.6); Calc. Creatinine Clearance 104 mL/min (70-130); Calcium 8.8 mg/dL (7.8-10.44); Carbon Dioxide 24 mmol/L (22-29); Chloride 110 mmol/L (98-107); Estimated GFR-MDRD Greater than 90; Glucose 140 mg/dL (70-105); Potassium 3.8 mmol/L (3.5-5.1); Sodium 141 mmol/L (136-145)
[2018-07-15 09:59] LABS: Band 12 % (5-11); Hemoglobin 8.1 g/dL (14.0-18.0); Lymphocytes 57 % (21-51); MDiff Complete? YES; Mean Corpuscular HGB CONC 34.5 g/dL (32.0-36.0); Mean Corpuscular Hemoglobin 34.4 pg (27.0-31.0); Mean Corpuscular Volume 99.7 fL (78.0-98.0); Mean Platelet Volume 7.6 fL (7.4-10.4); Metamyelocyte 2 % (0-0); Monocytes 2 % (0-10); Neutrophil 26 % (42-75); Nucleated RBC 2 % (0); PLT Morphology Comment Appears Decreased; Platelet Count 40 thou/uL (130-400); Polychromasia SLIGHT = 2-3 cells (100X) (0-2/hpf); RBC Distribution Width 17.7 % (11.5-14.5); Red Blood Cell (RBC) Count 2.35 mill/uL (4.70-6.10); White Blood Cell (WBC) Count 2.4 thou/uL (4.8-10.8)
[2018-07-15] MEDS ORDERED: Senokot S 8.6-50 MG TAB PO SCH (11:00)
[2018-07-15] MEDS ORDERED: Polyethylene Glycol 3350 17 GM Packet PO SCH (11:00)
--- NOTE | 2018-07-15 13:19 | PDOC.PN ---
- Subjective Encounter Start Date: 07/15/18 Encounter Start Time: 10:30 Subjective: pt up in bed has pain to his left groin area - Objective Vital Signs & Weight: Vital Signs (12 hours) Temp Pulse Resp BP BP Pulse Ox 07/15/18 11:24 97.7 F 72 20 126/70 100 07/15/18 08:00 98 F 70 16 119/69 95 07/15/18 04:00 98.1 F 72 16 118/66 95 Weight Admit Weight 162 lb 1.6 oz Weight 145 lb 7 oz I&O: 07/14/18 07/15/18 07/16/18 06:59 06:59 06:59 Intake Total 1560 2930 120 Balance 1560 2930 120 Result Diagrams: 07/15/18 09:20 07/15/18 09:20 Phys Exam - Physical Examination Neck: no nodes, no JVD, supple, full ROM Respiratory: no wheezing, no rales, no rhonchi, wheezing present, clear to auscultation bilateral Cardiovascular: RRR, no significant murmur, no rub, gallop, irregular Gastrointestinal: soft, non-tender, no distention, positive bowel sounds Musculoskeletal: no edema, pulses present, edema present Dx/Plan (1) Pancytopenia Code(s): D61.818 - OTHER PANCYTOPENIA Status: Acute (2) Melena Code(s): K92.1 - MELENA Status: Acute (3) Lymphadenopathy Code(s): R59.1 - GENERALIZED ENLARGED LYMPH NODES Status: Acute (4) Megaloblastic anemia Code(s): D53.1 - OTHER MEGALOBLASTIC ANEMIAS, NOT ELSEWHERE CLASSIFIED Status : Acute (5) Megaloblastic anemia due to B12 deficiency Code(s): D53.1 - OTHER MEGALOBLASTIC ANEMIAS, NOT ELSEWHERE CLASSIFIED Status : Acute - Plan pt's hh continues to trend down -: pt's pathlogy results are pending -: pt has no pcp will make sure to get appointment with onc prior to discharge * . Review of Systems - Review of Systems Respiratory: negative: Cough, Dry, Shortness of Breath, Hemoptysis, SOB with Excertion, Pleuritic Pain, Sputum, Wheezing Cardiovascular: negative: chest pain, palpitations, orthopnea, paroxysmal nocturnal dyspnea, edema, light headedness, other Gastrointestinal: negative: Nausea, Vomiting, Abdominal Pain, Diarrhea, Constipation, Melena, Hematochezia, Other - Medications/Allergies Allergies/Adverse Reactions: Allergies Allergy/AdvReac Type Severity Reaction Status Date / Time No Known Allergies Allergy Unverified 07/10/18 23:51 Medications: Current Medications Acetaminophen (Tylenol) 325 mg PO Q4H PRN PRN Reason: Headache/Fever or Pain Last Admin: 07/15/18 05:53 Dose: 325 mg Acetaminophen (Tylenol) 650 mg PO Q6H PRN PRN Reason: Pain 2ND LINE Last Admin: 07/15/18 05:55 Dose: 650 mg Cyanocobalamin (Vitamin B-12) 1,000 mcg IM DAILY [facility] Last Admin: 07/15/18 08:17 Dose: 1,000 mcg Pantoprazole Sodium (Protonix) 40 mg IVP BID [facility] Last Admin: 07/15/18 08:17 Dose: 40 mg Polyethylene Glycol (Miralax) 17 gm PO DAILY [facility] Senna/Docusate Sodium (Senokot S) 1 tab PO BID [facility] Sodium Chloride (Flush - Normal Saline) 10 ml IVF Q12HR [facility] Last Admin: 07/15/18 08:17 Dose: 10 ml Sodium Chloride (Flush - Normal Saline) 10 ml IVF PRN PRN PRN Reason: Saline Flush
[2018-07-15] MEDS: Senokot S 8.6-50 MG TAB PO SCH (21:12)
[2018-07-16 06:50] LABS: Anisocytosis SLIGHT = 6-15 cells (100X) (0-5/hpf); Band 12 % (5-11); Eosinophils 1 % (0-10); Hemoglobin 8.3 g/dL (14.0-18.0); Lymphocytes 61 % (21-51); MDiff Complete? YES; Mean Corpuscular HGB CONC 34.5 g/dL (32.0-36.0); Mean Corpuscular Volume 98.3 fL (78.0-98.0); Mean Platelet Volume 7.7 fL (7.4-10.4); Monocytes 1 % (0-10); Neutrophil 25 % (42-75); PLT Morphology Comment Appears Decreased; Platelet Count 44 thou/uL (130-400); RBC Distribution Width 17.6 % (11.5-14.5); Red Blood Cell (RBC) Count 2.44 mill/uL (4.70-6.10); White Blood Cell (WBC) Count 2.7 thou/uL (4.8-10.8)
[2018-07-16] MEDS: Cyanocobalamin 1000 MCG/ML VIAL IM SCH (08:18)
[2018-07-16] MEDS: Pantoprazole 40 MG VIAL IVP SCH (08:19)
[2018-07-16] MEDS: Senokot S 8.6-50 MG TAB PO SCH (08:19)
[2018-07-16] MEDS ORDERED: Polyethylene Glycol 3350 17 GM Packet PO SCH (09:00)
[2018-07-16] MEDS ORDERED: Hydrocortisone 1% Cream 30 GM TUBE TOP PRN (12:15)
[2018-07-16 15:39] VITALS: BP 131/68; TEMP 99
--- NOTE | 2018-07-16 18:48 | DIS ---
CHIEF COMPLAINT: Generalized weakness. DISCHARGE DIAGNOSES: 1. Pancytopenia. 2. Generalized lymphadenopathy. 3. Generalized weakness. 4. Megaloblastic anemia. HOSPITAL COURSE: The patient is a very pleasant 47-year-old male who presented to the hospital with generalized weakness. Initially, he was found to have a hemoglobin of 5.9. The patient also was fou nd to have pancytopenia. HIV test was done, which was negative. The patient was given 2 units of NV BCs. His H&H went up to 9 and has been sustaining around 8-9. The patient in the meantime had an ab domen and pelvis CAT scan with contrast, which indicated significant lymphadenopathy throughout the a bdomen concerning for possible lymphoma. The patient underwent an EGD and colonoscopy by GI, initial ly for possible melena. The EGD endoscopy did not indicate any acute abnormalities. The patient als o then underwent a testicular ultrasound given the abnormal findings in the abdominal CT. Testicular ultrasound indicated hypervascular testicle bilaterally, may be a sequela of bilateral orchitis. No underlying mass. The patient did not have any leukocytosis or any pain upon physical examination of his genitals. The patient then was seen by Hematology/Oncology for low vitamin B12. At this time, the patient was started on intramuscular vitamin B12 shots and also Surgery was consulted for excisio n of his lymph node. The patient underwent excision of his lymph node on his left femoral area, ic h was sent for pathology. Results are pending. The patient currently is denying any complaints. Hi s H&H have been stable. He will be discharged home. He will follow up with Oncology as outpatient. I have used an plant utilities engineer to explain to the patient and the that he will need to follow up [facility] Oncology as an outpatient. Tried to see if he had an appointment set up; however, the office today is closed. The patient also will be given oral vitamin B12. MEDICATIONS: The patient's home medications were as of the followin. Multivitamin daily. 2. Hydrocortisone cream 15 t.i.d. p.r.n. around his rectal area for pain and vitamin B12, 2500 mcg s ublingual daily. Again, the patient will follow up with his primary care and also with Oncology. PHYSICAL EXAMINATION: VITAL SIGNS: Temperature 99, pulse 83, respirations 16, saturation 99% on room air, blood pressure 1 31/68. GENERAL: He is awake, alert, oriented x3, does not appear in any distress. CARDIOVASCULAR: S1, S2 present. No murmurs, rubs, or gallops. ABDOMEN: Soft, nontender. Bowel sounds are present x2. EXTREMITIES: No edema. Incision on his left groin area appears stable.
[2018-07-17 10:12] LABS: Fungus Stain Final report (.)
--- NOTE | 2018-07-23 19:47 | PDOC.OP ---
Operative Note - Operative Note Operative Note: PROCEDURE: Left inguinal lymph node excisional biopsy DATE OF PROCEDURE: 07/13/28 SURGEON: Devon Tavares M.D. PREOPERATIVE DIAGNOSES: Lymphadenopathy with suspected lymphoma POSTOPERATIVE DIAGNOSIS: Lymphadenopathy with suspected lymphoma HISTORY: Patient with fairly extensive lymphadenopathy including both inguinal areas. He is suspected to have lymphoma and a lymph node biopsy was requested for diagnostic purposes. PROCEDURE IN DETAIL: After informed consent was obtained the patient was taken to the operating room and placed in supine position. Anesthesia was administered and he was prepped and draped in the standard sterile fashion. Local anesthesia was infused the skin and subcutaneous tissues overlying the easily palpable left inguinal lymph node. A skin incision was made and dissection carried down to the lymph node which was dissected free circumferentially. The hilum was clipped and ligated as were several small vessels and the lymph node excised. A small portion was removed and sent to microbiology for standard, fungal, and AFB cultures and the remainder was sent fresh to pathology for histopathology and flow. The wound was irrigated and hemostasis verified. The subcutaneous tissues were reapproximated with 3-0 Monocryl and the skin was closed with 4-0 Monocryl suture. Dermabond dressings were placed and the patient was taken to the recovery room in good condition. Estimated blood loss was minimal. There were no complications. Specimen is left inguinal lymph node.
== END 2018-07-16 16:18 | disposition home or self-care (01) | DRG 804 ==
LOC: ERS 20:13 → 2NO 23:22
PROVIDERS: ADMIT Hospitalist; ATTEND Hospitalist
PROC: 0DJ08ZZ Inspection of Upper Intestinal Tract, Via Natural or Artificial Opening Endoscopic (ICD-10-PCS; principal; 2018-07-12)
PROC: 0DJD8ZZ Inspection of Lower Intestinal Tract, Via Natural or Artificial Opening Endoscopic (ICD-10-PCS; 2018-07-12)
PROC: 07TJ4ZZ Resection of Left Inguinal Lymphatic, Percutaneous Endoscopic Approach (ICD-10-PCS; 2018-07-12)
DX: D61.818 Other pancytopenia (principal)
CPT/HCPCS: 36415; 36416; 36430; 71046; 74177; 76870; 80048; 80053; 81001; 82105; 82274; 82607; 82728; 83010; 83540; 83550; 83615; 84702; 85018; 85025; 85046; 85060; 85610; 85730; 86038; 86225; 86850; 86900; 86901; 87070; 87102; 87116; 87205; 87206; 87389; 88184; 88307; 93005; A4216; C9113; J1100; J2001; J2405; J2704; J3010; J3420; J7050; P9016

== ENCOUNTER 2018-09-13 18:52 | Emergency (ER) | payer BC | END 2018-09-13 21:00 | disposition home or self-care (01) | LOC: ERS 18:52 | DX: T82.898A Other specified complication of vascular prosthetic devices, implants and grafts, initial encounter (principal); J45.909 Unspecified asthma, uncomplicated | CPT/HCPCS: 99283 ==

== ENCOUNTER 2018-09-28 18:52 | Observation (INO) | payer BC ==
[~2018-09-28 18:52] MED LIST: ISOVUE-370 76%-LOCM 1 ML ONE
[2018-09-28 19:30] LABS: Hemoglobin 10.2 g/dL (14.0-18.0); Mean Corpuscular HGB CONC 33.5 g/dL (32.0-36.0); Mean Corpuscular Hemoglobin 31.8 pg (27.0-31.0); Mean Corpuscular Volume 94.8 fL (78.0-98.0); Mean Platelet Volume 7.7 fL (7.4-10.4); Platelet Count 142 thou/uL (130-400)
[2018-09-28] MEDS ORDERED: Ondansetron PF 4 MG/2 ML Vial ONE (19:31)
[2018-09-28] MEDS ORDERED: Morphine 2 MG/ML SYRINGE ONE ×2 (19:31→21:09)
[2018-09-28 19:48] LABS: ALT (SGPT) 16 U/L (8-55); AST (SGOT) 11 U/L (5-34); Albumin 3.9 g/dL (3.5-5.0); Alkaline Phosphatase 108 U/L (40-150); Anion Gap 13 mmol/L (10-20); BUN (Urea Nitrogen) 14 mg/dL (8.9-20.6); Bilirubin, Total 0.7 mg/dL (0.2-1.2); CK (CPK) Less than 9 U/L (30-200); Calc. Creatinine Clearance 0 mL/min (70-130); Calcium 9.2 mg/dL (7.8-10.44); Carbon Dioxide 29 mmol/L (22-29); Chloride 100 mmol/L (98-107); Estimated GFR-MDRD Greater than 90; Globulin 2.6 g/dL (2.4-3.5); Glucose 166 mg/dL (70-105); Potassium 4.1 mmol/L (3.5-5.1); Protein, Total 6.5 g/dL (6.0-8.3); Sodium 138 mmol/L (136-145)
[2018-09-28 19:49] LABS: Anisocytosis SLIGHT = 6-15 cells (100X) (0-5/hpf); Band 1 % (5-11); Hypersemented Neutrophil SLIGHT; Lymphocytes 9 % (21-51); MDiff Complete? YES; Neutrophil 90 % (42-75); Ovalocytes SLIGHT = 2-5 cells (100X) (0-1/hpf); PLT Morphology Comment Appears Adequate; Polychromasia SLIGHT = 2-3 cells (100X) (0-2/hpf)
[2018-09-28 19:52] LABS: CKMB 0.5 ng/mL (0-6.6); Troponin I Less than 0.010 ng/mL (< 0.028)
--- NOTE | 2018-09-28 21:02 | RAD ---
FRONTAL RADIOGRAPH CHEST: 09/28/2018 HISTORY: Chest pain. COMPARISON: 09/29/2017 FINDINGS: A left upper extremity PICC is noted, with the distal tip overlying the region of the lower right atr ium. There is no pneumothorax, pleural fluid, focal consolidation, or alveolar edema. IMPRESSION: Left upper extremity peripherally inserted central catheter, terminating in the region of the inferio r right atrium. No focal consolidation or alveolar edema. POS: [facility]
--- NOTE | 2018-09-28 21:18 | CT ---
CT PULMONARY ANGIOGRAM WITH IV CONTRAST AND 3D POSTPROCESSIN09/28/18 HISTORY: 47-year-old male with chest pain. FINDINGS: There is good contrast opacification of the pulmonary arterial vasculature without filling defects to suggest pulmonary embolism. The thoracic aorta is opacified without aneurysmal dissection. No pleura l or pericardial effusions are seen. There are mild ground glass infiltrates in the lung bases poste riorly. There are degenerative changes in the spine. IMPRESSION: No CT evidence of pulmonary embolism. POS: [facility]
[2018-09-28 22:31] LABS: Troponin I Less than 0.010 ng/mL (< 0.028)
[2018-09-28] MEDS ORDERED: Ondansetron PF 4 MG/2 ML Vial IVP PRN (22:45)
[2018-09-28] MEDS ORDERED: HYDROcodone/Acetaminophen 5/325 mg Tablet PO PRN ×2 (22:45)
[2018-09-28] MEDS ORDERED: Acetaminophen 325 MG TAB PO PRN (22:45)
[2018-09-28] MEDS ORDERED: Ondansetron ODT 4 MG TAB SL PRN (22:45)
[2018-09-28] MEDS ORDERED: HYDROcodone/Acetaminophen 5/325 mg Tablet ONE (23:11)
[2018-09-28] MEDS: Sodium Chloride 0.9% 1,000 ML IV SCH (23:18)
[2018-09-29 01:04] LABS: Troponin I Less than 0.010 ng/mL (< 0.028)
[2018-09-29 01:07] VITALS: BMI 24.5
[2018-09-29] MEDS ORDERED: Ondansetron ODT 8 MG TAB PO PRN (01:44)
[2018-09-29] MEDS ORDERED: Nortriptyline 10 MG CAP ONE (02:30)
[2018-09-29] MEDS ORDERED: Potassium Chloride 20 MEQ TAB ONE (08:42)
[2018-09-29] MEDS: Potassium Chloride 20 MEQ TAB PO SCH (08:56)
[2018-09-29] MEDS: ISAVUCONAZONIUM SULFATE 186 MG PO SCH (09:01)
[2018-09-29] MEDS: Sodium Chloride 0.9% 1,000 ML IV SCH ×2 (09:37→15:15)
[2018-09-29] MEDS ORDERED: Sterile Water 10 ML VIAL IVP SCH (10:37)
[2018-09-29] MEDS ORDERED: Activase 2 MG VIAL CATH SCH (10:37)
[2018-09-29] MEDS ORDERED: Regadenoson 0.4 MG/5 ML SYRINGE ONE (11:00)
[2018-09-29] MEDS ORDERED: valACYclovir 500 MG TAB PO SCH (11:15)
[2018-09-29] MEDS ORDERED: Ketorolac Tromethamine 30 MG/ML VIAL IVP SCH (12:00)
[2018-09-29 12:13] LABS: Anion Gap 11 mmol/L (10-20); BUN (Urea Nitrogen) 13 mg/dL (8.9-20.6); Calc. Creatinine Clearance 134 mL/min (70-130); Calcium 9.4 mg/dL (7.8-10.44); Carbon Dioxide 28 mmol/L (22-29); Chloride 100 mmol/L (98-107); Estimated GFR-MDRD Greater than 90; Glucose 136 mg/dL (70-105); Potassium 4.9 mmol/L (3.5-5.1); Sodium 134 mmol/L (136-145)
[2018-09-29 13:51] LABS: Hemoglobin 8.9 g/dL (14.0-18.0); Mean Corpuscular HGB CONC 34.5 g/dL (32.0-36.0); Mean Corpuscular Hemoglobin 33.2 pg (27.0-31.0); Mean Corpuscular Volume 96.3 fL (78.0-98.0); Mean Platelet Volume 7.6 fL (7.4-10.4); Platelet Count 64 thou/uL (130-400); RBC Distribution Width 17.2 % (11.5-14.5); Red Blood Cell (RBC) Count 2.69 mill/uL (4.70-6.10); White Blood Cell (WBC) Count 0.7 thou/uL (4.8-10.8)
[2018-09-29 14:06] LABS: Anisocytosis SLIGHT = 6-15 cells (100X) (0-5/hpf); Band 1 % (5-11); Dohle Bodies SLIGHT; Lymphocytes 17 % (21-51); MDiff Complete? YES; Monocytes 3 % (0-10); Neutrophil 76 % (42-75); Ovalocytes SLIGHT = 2-5 cells (100X) (0-1/hpf); PLT Morphology Comment Appears Decreased; Polychromasia SLIGHT = 2-3 cells (100X) (0-2/hpf); Reactive Lymphocytes 1 % (0-10); Tear Drops SLIGHT = 2-5 cells (100X) (0-1/hpf)
--- NOTE | 2018-09-29 15:49 | NM ---
CARDIAC SPECT: CLINICAL HISTORY: 47-year-old male with chest pain. TECHNIQUE: A myocardial perfusion scan was performed using the single isotope one day protocol with technetium-9 9m sestamibi. 9 mCi were injected intravenously for the rest exam followed by 30 mCi for the stress e xam. Pharmacologic stress with Lexiscan was monitored and interpreted by Dr. iDnero. FINDINGS: Homogeneous tracer distribution is seen in the myocardial segments on stress and rest images without fixed or reversible defects. GATED SPECT LVEF: 58%. WALL MOTION EXAM: Normal. IMPRESSION: Normal myocardial perfusion scan. POS: [facility]
[2018-09-29] MEDS ORDERED: Dexamethasone 4 MG TAB PO SCH (20:45)
[2018-09-29] MEDS ORDERED: Sodium Chloride 0.9% 1,000 ML IV SCH (20:45)
[2018-09-29] MEDS: Amoxicillin/Potassium Clav 875 MG TAB PO SCH (21:16)
[2018-09-29] MEDS: Famotidine 20 MG TAB PO SCH (21:16)
--- NOTE | 2018-09-29 21:39 | HP ---
DATE OF ADMISSION: 09/29/2018 PRIMARY CARE PHYSICIAN: Dr. Lalo Morin. CHIEF COMPLAINT: Chest pain. HISTORY OF PRESENT ILLNESS: Mr. Willi Leiva is a pleasant 47-year-old male with a past medical his tory of leukemia, undergoing chemotherapy with last chemotherapy 4 days ago, and history of asthma. He had presented to the ER [facility] with complaints of chest pain that h ad started since last night after eating dinner. He states pain is in left upper chest along with ramirez bsternal area. He states the pain does radiate to his back and it is sharp in nature. He states whe n the pain came on, it was 10/10; however, over the last 12 hours, pain has slightly improved. In ER, he was given aspirin oral 324 mg, 2 doses of IV morphine 4 mg, and IV Zofran 4 mg for nausea, h e had tolerated this regimen well and this improved his symptoms. He was transferred up to the floor on telemetry. He was placed in observation status for chest pain rule out. He was seen by myself medhat trinidad or later that morning with several family members at bedside, his daughter was at bedside byron gardiner. He states that his pain is 5/10, currently in left upper chest, that radiates to his back. He denies any other symptoms. He had recently undergone chemotherapy for leukemia. He states his on cologist is Dr. White with [facility]. He denies any fever or chills, diaphoresis, or shortness of breath. He was started on prophylactic medications including antibiotics, antivirals, and antifungals. He was supposed to follow up with his oncologist for a second round of chemotherapy next week. PAST MEDICAL HISTORY: Asthma and leukemia, patient was unaware of kind and could not tell me, but he is undergoing chemotherapy. SOCIAL HISTORY: He drinks 1-2 beers roughly a month, he denies any smoking or drug use. ALLERGIES: No known drug allergies at this time. CURRENT HOME MEDICATIONS: 1. Dexamethasone 40 mg p.o. daily. 2. Valtrex 500 mg p.o. daily. 3. Potassium chloride 20 mEq p.o. daily. 4. Zofran ODT 8 mg p.o. q.8 hours p.r.n. nausea. 5. Levothyroxine 500 mg p.o. daily. 6. Augmentin 875/125 mg p.o. b.i.d. 7. Cresemba 186 mg capsule, 2 capsules p.o. daily. REVIEW OF SYSTEMS: CONSTITUTIONAL: Denies any fever or chills. Denies any weight loss or weight ga in. EYES: Denies any eye pain, eye discharge or vision changes. ENT: Denies any ear, nose or thro at symptoms including nosebleeds, loss of hearing, ringing in the ears or sore throat. CARDIOVASCULA R: Does report some left-sided chest pain that radiates to his back, denies any murmur. RESPIRATORY : Denies any cough or shortness of breath. GASTROINTESTINAL: Denies any abdominal pain, constipati on, diarrhea, or vomiting. GENITOURINARY: Denies any frequency, urgency, dysuria or blood in urine. MUSCULOSKELETAL: Denies any fall or injury. NECK: Denies any neck pain. SKIN: No rashes or ski n lesions. NEUROLOGIC: Denies any headache, weakness. PHYSICAL EXAMINATION: VITAL SIGNS: BP 125/72, pulse 86, respirations 14, temperature 99.6, O2 saturation 98% on room air. On admission, last outpatient BP 88/54, pulse 84, respirations 16, temperature 98.2 and O2 saturatio ns 96% on room air. GENERAL: He is awake, alert, and oriented x3. No acute distress noted. Several family members are at bedside, daughter at bedside translating. HEENT: Head is atraumatic, normocephalic. Pupils are round and reactive to light. Extraocular musc les are intact. Hearing is intact to conversation. Speaks Malay, daughter is at bedside translati ng. Oropharynx is clear without any erythema or exudates. Moist mucous membranes noted. CARDIOVASCULAR: Positive S1, S2. No murmurs, rubs or gallops. LUNGS: Clear to auscultation bilaterally. No rhonchi. No wheezes noted. ABDOMEN: Soft, nontender. Bowel sounds present. EXTREMITIES: No edema. Pedal and radial pulses 2+ bilaterally. Strength 5+ in both upper and lower extremities. Moves all 4 extremities. SKIN: Warm and dry, and intact. No lesions or bruising noted. PSYCHIATRIC: Normal mood and affect. Denies any suicidal or homicidal ideation. NEUROLOGIC: Cranial nerves II-XII intact. No focal deficits noted. Strength is 5+ bilaterally in u pper and lower extremities. LABORATORY DATA: WBC 0.7, RBC 2.69, hemoglobin 8.9, platelet 64. Sodium 134, potassium is 4.9, GFR greater than 90, creatinine 0.65. Troponin less than 0.010 x3, CK-MB 0.5, creatine kinase less than 9, alkaline phosphatase 108. DIAGNOSTIC IMAGING: Portable chest x-ray showed left upper extremity peripheral central catheter. N o focal consolidation or edema noted. CTA of chest showed no CT evidence of pulmonary embolism. ASSESSMENT AND PLAN: The patient is a very pleasant 47-year-old male who had presented to the hospit al with chest pain. 1. Chest pain. We will rule out cardiac, serial troponins less than 0.010 x3, we will obtain a stre ss test. We will continue patient on normal home medications. We will monitor vital signs closely, due to noted hypotension, he currently remains asymptomatic at this time. We will continue on IV gen tle hydration with normal saline. Further medical management is pending patient's progress and lula p. 2. Leukocytopenia, patient has a history of leukemia, currently undergoing chemotherapy. We will pl jonelle in isolation for underlying risk for neutropenia, we will place consult for Oncology for further evaluation and management. Did contact Dr. Castaneda, she had recommended ruling out chest pain and no further workup needed at this time. We will likely discharge the patient with close followup as out patient for further chemotherapy. 3. Hypotension, as above we will continue with gentle hydration and closely monitor symptoms, he is currently asymptomatic. 4. History of leukemia, currently undergoing chemotherapy. We will continue on prophylactic medicat ions including antiviral, antifungal, and antibiotics. We will continue dexamethasone and keep in is olation for neutropenic risk. Oncology Services will be consulted, but as above no further workup at this time. 5. Deep venous thrombosis prophylaxis with Lovenox. 6. Gastrointestinal prophylaxis with Pepcid 20 mg p.o. b.i.d. and Zofran as needed for nausea. 7. Code status: FULL CODE. DISPOSITION: Pending patient's workup and progress. As above we will rule out patient's symptoms of chest pain and likely discharge home with close outpatient followup with oncologist and continued emotherapy. No further workup for neutropenia at this time. Likely discharge home under 48 hours.
[2018-09-30] MEDS: Sodium Chloride 0.9% 1,000 ML IV SCH ×2 (00:33→09:57)
[2018-09-30 04:43] VITALS: TEMP 97.8
[2018-09-30 05:08] LABS: Hemoglobin 7.9 g/dL (14.0-18.0); Mean Corpuscular Hemoglobin 32.7 pg (27.0-31.0); Mean Corpuscular Volume 96.2 fL (78.0-98.0); Mean Platelet Volume 8.5 fL (7.4-10.4); Platelet Count 52 thou/uL (130-400); RBC Distribution Width 17.1 % (11.5-14.5); Red Blood Cell (RBC) Count 2.43 mill/uL (4.70-6.10); White Blood Cell (WBC) Count 0.2 thou/uL (4.8-10.8)
[2018-09-30 05:18] LABS: Anion Gap 11 mmol/L (10-20); BUN (Urea Nitrogen) 12 mg/dL (8.9-20.6); Calc. Creatinine Clearance 134 mL/min (70-130); Calcium 9.4 mg/dL (7.8-10.44); Carbon Dioxide 24 mmol/L (22-29); Chloride 108 mmol/L (98-107); Estimated GFR-MDRD Greater than 90; Glucose 241 mg/dL (70-105); Potassium 4.8 mmol/L (3.5-5.1); Sodium 138 mmol/L (136-145)
[2018-09-30 07:47] VITALS: BP 102/68
[2018-09-30] MEDS ORDERED: Dexamethasone 4 MG TAB PO SCH (09:00)
[2018-09-30] MEDS ORDERED: valACYclovir 500 MG TAB PO SCH (09:00)
[2018-09-30] MEDS ORDERED: Enoxaparin Sodium 40 MG/0.4 ML SYRINGE SC SCH (09:00)
[2018-09-30] MEDS: Amoxicillin/Potassium Clav 875 MG TAB PO SCH (10:02)
[2018-09-30] MEDS: Famotidine 20 MG TAB PO SCH (10:02)
[2018-09-30] MEDS: Potassium Chloride 20 MEQ TAB PO SCH (10:03)
[2018-09-30] MEDS: ISAVUCONAZONIUM SULFATE 186 MG PO SCH (10:07)
--- NOTE | 2018-10-01 13:55 | DIS ---
DATE OF ADMISSION: 09/28/2018 DATE OF DISCHARGE: 09/30/2018 DISCHARGE DIAGNOSES: 1. Chest pain, noncardiac, stable. 2. History of leukemia, currently undergoing chemotherapy, stable. 3. Leukocytopenia likely related to above, stable. 4. Hypotension, resolved. CONSULTATIONS: Oncology services, Dr. Castaneda. LABORATORY AND DIAGNOSTIC IMAGING: WBC on admission 6.0 prior to discharge 0.2, RBC 2.43, hemoglobin 7.9, platelet 52. Sodium 138, potassium 4.8, creatinine 0.65, GFR greater than 90. Troponin less t pantoja 0.010 x2. Chest x-ray showed left upper extremity peripheral inserted central catheter with no f ocal consolidation or edema noted. CT of chest showed no CT evidence of pulmonary embolism. Nuclear medicine cardiac stress test was normal for myocardial perfusion scan with normal wall motion . Echocardiogram displayed an ejection fraction of 50% to 55%. HOSPITAL COURSE: Mr. Willi Leiva is a pleasant 47-year-old male who presented to [facility] with his family for chest pain. In the ER, he had undergone a CT of chest, which wa s negative for PE. Chest x-ray showed no evidence of consolidation or edema. He was [facility] for chest pain rule out. He had undergone serial troponins, which were found to be less than 0.0 10 x2. Stress test revealed normal wall motion and normal myocardial perfusion scan. His symptoms o f chest pain had resolved during hospital course. It was during the hospital course, his white count had dropped to 0.7 and then later 0.2. He had remained asymptomatic at that time. A consult was pl aced to Dr. Castaneda with Oncology services; however, Dr. Castaneda stated that due to patient's underly ing leukemia who had been undergoing chemotherapy, he had remained asymptomatic, therefore, no furthe r workup needed at this time. Dr. Castaneda did also state that since chest pain was ruled out, theref ore, he would be stable for discharge home to follow up with his primary oncologist. Mr. Willi millan was seen and examined prior to discharge with several family members at bedside, he had denied any chest pain, shortness of breath, or abdominal pain. He had no headache, dizziness, nausea, or vomit ing. He was able to tolerate a cardiac diet without any complications. He had no weakness or fatigu e showed no further signs of fever or chills. He was instructed to follow up with his primary oncolo gist as outpatient for any further treatments of chemotherapy. He also was instructed to follow up w [facility] PCP, Dr. Lalo Morin in 1-2 weeks, he had verbalized his understanding, his daughter was at beds shobha translating. He was deemed stable for discharge home on 09/30/2018. DISCHARGE MEDICATIONS: 1. Dexamethasone 40 mg oral daily. 2. mg oral daily. 3. Potassium chloride 20 mEq oral daily. 4. Zofran 8 mg oral every 8 hours as needed for nausea. 5. Levaquin 500 mg oral daily. 6. Augmentin 875/125 mg oral twice daily. 7. 2 tablets oral daily. FOLLOWUP: The patient was instructed to follow up with his PCP, Dr. Lalo Morin in 1-2 weeks along with his primary oncologist, Dr. White in 1-2 weeks. CONDITION ON DISCHARGE: Stable. DIET: Heart healthy. ACTIVITY: As tolerated. DISPOSITION: Home on 09/30/2018.
--- NOTE | 2018-10-03 08:16 | EKG ---
Test Reason : Blood Pressure : / mmHG Vent. Rate : 081 BPM Atrial Rate : 081 BPM P-R Int : 112 ms QRS Dur : 076 ms QT Int : 332 ms P-R-T Axes : 039 012 026 degrees QTc Int : 385 ms Normal sinus rhythm ST elevation consider inferolateral injury or acute infarct vs pericarditis * ACUTE [place] * Abnormal ECG When compared with ECG of 28-SEP-2018 19:01, (Unconfirmed) No significant change was found Confirmed by DR. Jai VAZQUEZ ([id number]) on 10/03/2018 8:16:16 AM Referred By: YAHAIRA Confirmed By:DR. Jai VAZQUEZ
== END 2018-09-30 10:50 | disposition home or self-care (01) ==
LOC: ERS 18:52 → 2SW 22:28
PROVIDERS: ADMIT Internal Medicine; ATTEND Internal Medicine
DX: R07.89 Other chest pain (principal); C95.90 Leukemia, unspecified not having achieved remission; I95.9 Hypotension, unspecified
CPT/HCPCS: 36415; 71045; 71275; 78452; 80048; 80053; 82553; 83880; 84484; 85025; 93005; 93010; 93017; 93306; 96361; 96374; 96375; 96376; A4216; A9500; G0378; J1885; J2270; J2405; J2785; J2997; J8540

== ENCOUNTER 2018-11-15 12:51 | Inpatient (IN) | payer BC ==
[2018-11-15] MEDS ORDERED: Morphine 4 MG/ML VIAL ONE ×2 (13:08→14:30)
[2018-11-15 13:26] LABS: Hemoglobin 12.4 g/dL (14.0-18.0); Mean Corpuscular HGB CONC 34.8 g/dL (32.0-36.0); Mean Corpuscular Hemoglobin 30.6 pg (27.0-31.0); Mean Corpuscular Volume 87.9 fL (78.0-98.0); Mean Platelet Volume 7.5 fL (7.4-10.4); Platelet Count 164 thou/uL (130-400); RBC Distribution Width 13.6 % (11.5-14.5); Red Blood Cell (RBC) Count 4.05 mill/uL (4.70-6.10); White Blood Cell (WBC) Count 7.6 thou/uL (4.8-10.8)
[2018-11-15 13:29] LABS: Prothrombin Time 12.9 SEC (12.0-14.7)
[2018-11-15 13:30] LABS: PTT 28.1 SEC (22.9-36.1)
[2018-11-15 13:47] LABS: Band 3 % (5-11); Lymphocytes 1 % (21-51); MDiff Complete? YES; Monocytes 1 % (0-10); Neutrophil 95 % (42-75); PLT Morphology Comment Appears Adequate
[2018-11-15 13:51] LABS: ALT (SGPT) 15 U/L (8-55); AST (SGOT) 14 U/L (5-34); Albumin 4.2 g/dL (3.5-5.0); Alkaline Phosphatase 99 U/L (40-150); Anion Gap 18 mmol/L (10-20); BUN (Urea Nitrogen) 15 mg/dL (8.9-20.6); Bilirubin, Total 0.7 mg/dL (0.2-1.2); CK (CPK) 12 U/L (30-200); Calc. Creatinine Clearance 0 mL/min (70-130); Calcium 9.7 mg/dL (7.8-10.44); Carbon Dioxide 28 mmol/L (22-29); Chloride 98 mmol/L (98-107); Estimated GFR-MDRD Greater than 90; Globulin 2.7 g/dL (2.4-3.5); Glucose 187 mg/dL (70-105); Potassium 3.8 mmol/L (3.5-5.1); Protein, Total 6.9 g/dL (6.0-8.3); Sodium 140 mmol/L (136-145)
--- NOTE | 2018-11-15 14:24 | CT ---
CT ANGIOGRAM OF CHEST: Date: 11/15/18 COMPARISON: 09/28/18. HISTORY: Shortness of breath, assess for pulmonary embolism. TECHNIQUE: Axial CT imaging is obtained at 2.5 mm intervals from the thoracic inlet through the upper abdomen wi th intravenous contrast using CT angiogram protocol. Coronal and sagittal 3D reformatted imaging obta ined. FINDINGS: Incompletely imaged left upper extremity PICC noted, distal tip extending into the region of the supe rior vena cava. Limited assessment of the upper abdomen demonstrates debris and fluid within the stomach. No signific ant pleural, pericardial, or mediastinal fluid is noted. No axillary, mediastinal, or hilar lymphadenopathy. New small pericardial effusion. No significant pleural fluid. Opacification of the pulmonary arterial vasculature distally is suboptimal secondary to respiratory m otion artifact and timing of the contrast bolus. No central filling defect noted within the pulmonary arterial trunk or either main pulmonary artery. Lobar segmental and subsegmental pulmonary arteries are not well assessed. There is no pneumothorax noted on either side. There is mild patchy nonspecific increased density in the inferolateral lingula, new. There are scattered areas of hazy opacity involving the inferior half of the left lower lobe, most pr ominent within the inferiormost aspect of the left lower lobe, new. There is patchy nonspecific air s pace disease noted within the inferior aspect of the right lower lobe as well, worsened since the jennifer or exam. Mild hazy ground-glass opacity noted in the inferior aspect of the right middle lobe, new. Review of the osseous structures demonstrates no discrete worrisome lytic or blastic lesion. IMPRESSION: 1. No central pulmonary arterial embolism. Limited assessment as detailed above. 2. Areas of patchy nonspecific pulmonary parenchymal opacity within the right middle lobe, the lingu la, and both lower lobes, right greater than left. This is suspicious for multifocal infectious pneum onitis. A degree of this may be on the basis of respiratory motion artifact and volume loss. Recommen d follow-up imaging following treatment to document resolution. 3. New nonspecific small pericardial effusion. POS: DEX
[2018-11-15] MEDS ORDERED: cefTRIAXone\\ROCEPHIN 2 GM VIAL ONE (14:30)
[2018-11-15] MEDS ORDERED: Azithromycin 500 MG in Sodium Chloride 0.9% 250 ML 250 ML IVPB SCH (15:30)
[2018-11-15] MEDS ORDERED: Fentanyl 100 MCG/2 ML VIAL ONE (15:47)
[2018-11-15] MEDS ORDERED: Iopamidol 370 76% 50 ML VIAL FS ONE (16:53)
[2018-11-15] MEDS ORDERED: Ketorolac Tromethamine 30 MG/ML VIAL ONE (17:10)
[2018-11-15 18:41] LABS: Lactic Acid 4.3 mmol/L (0.5-2.2)
[2018-11-15] MEDS ORDERED: Ondansetron PF 4 MG/2 ML Vial IVP PRN ×2 (19:10→19:40)
[2018-11-15] MEDS ORDERED: Acetaminophen 325 MG TAB PO PRN ×2 (19:10→19:40)
[2018-11-15] MEDS ORDERED: Ondansetron ODT 4 MG TAB SL PRN (19:10)
[2018-11-15] MEDS ORDERED: Morphine 4 MG/ML VIAL SLOW IVP PRN (19:40)
[2018-11-15] MEDS ORDERED: Dextrose 50% Abboject 50 ML SYRINGE SLOW IVP PRN (19:40)
[2018-11-15] MEDS ORDERED: Acetaminophen 650 MG Suppository PR PRN (19:40)
[2018-11-15] MEDS ORDERED: Ondansetron ODT 4 MG TAB PO PRN (19:40)
[2018-11-15] MEDS ORDERED: Dextrose 5% in Water 1,000 ML IV PRN (19:40)
[2018-11-15] MEDS ORDERED: HumaLOG 300 UNITS/3 ML VIAL SC PRN (19:40)
[2018-11-15] MEDS ORDERED: Senokot S 8.6-50 MG TAB PO PRN (19:40)
[2018-11-15] MEDS ORDERED: Ketorolac Tromethamine 30 MG/ML VIAL IVP PRN (19:40)
[2018-11-15] MEDS: Famotidine 20 MG TAB PO SCH (22:15)
[2018-11-15] MEDS: Sodium Chloride 0.9% 1,000 ML IV SCH (22:16)
--- NOTE | 2018-11-15 23:41 | HP ---
PRIMARY CARE PHYSICIAN: Dr. Lalo Morin. PRIMARY ONCOLOGIST: Dr. White with [facility]. CHIEF COMPLAINT: Chest pain. HISTORY OF PRESENT ILLNESS: This is a 47-year-old male with a known history of leukemia, undergoing chemotherapy, just completed the 5th course of chemotherapy on the 13 of November, 2 days ago. He was discharged from the hospital, was doing fine until yesterday night. He started to have a little bit of chest discomfort, and then starting this morning, he had worsening severity of chest pain. Pain is sharp across the front of his chest and severely worse with taking deep breaths. It is also worse with lying down flat, better with sitting up straight or leaning forward a little bit. He denies any cough, fever, or other symptoms at all. The patient reports that he had the exact same symptoms with his last course of chemotherapy, which he completed in September 2018. He was admitted 4 days after that round of chemotherapy for chest pain. He had a workup done in the hospital, which was negative for any pathology. He had a normal cardiac stress test, normal echocardiogram, and was eventually discharged home. PAST MEDICAL HISTORY: All of the history taken from the patient with assistance of his daughter translating as he is Frisian-speaking only. 1. Leukemia, currently receiving chemotherapy. 2. Diabetes mellitus type 2, only when on steroids for his chemotherapy regimen. He does not have high blood sugars otherwise. PAST SURGICAL HISTORY: Lymph node biopsy in the groin for diagnosis of his leukemia. SOCIAL HISTORY: The patient is . He has never smoked cigarettes. He drinks very rarely and not to excess. PSYCHIATRIC HISTORY: None. FAMILY HISTORY: No history of cancer or other significant medical problems. ALLERGIES: NO KNOWN DRUG ALLERGIES. CURRENT MEDICATIONS: 1. Potassium chloride 20 mEq daily. 2. Acyclovir 500 mg daily. 3. Levofloxacin 500 mg daily. REVIEW OF SYSTEMS: CONSTITUTIONAL: No fevers, no chills, no weight changes. EYES: No double vision or blurred vision. ENT: No congestion, drainage, or sore throat. CARDIOVASCULAR: See HPI. No palpitations or racing heart. PULMONARY: See HPI. No coughing. No wheezing. No shortness of breath. GASTROINTESTINAL: No abdominal pain. No nausea or vomiting. No diarrhea or constipation. GENITOURINARY: No dysuria or hematuria. MUSCULOSKELETAL: No muscle aches or joint pain. SKIN: No rashes or lesions. NEUROLOGIC: No numbness, tingling, or focal weakness. PHYSICAL EXAMINATION: VITAL SIGNS: Blood pressure 121/81, pulse 101, respirations 28, temperature 98.4, O2 saturation 94% on room air. GENERAL: This is a well-developed, well-nourished male who is in acute distress from chest pain, it is fairly worsens with any movement or especially when he lays down flat. HEENT: Pupils are equal, round, and reactive to light. Oropharynx is clear without lesions, erythema, or exudate. NECK: Supple. No lymphadenopathy. No thyroid nodules or enlargement. No JVD. HEART: Regular rate and rhythm. No murmurs, rubs, or gallops. LUNGS: Clear to auscultation bilaterally. No wheezes, crackles, or rhonchi. The patient does not have any pain to palpation of the chest wall. ABDOMEN: Soft and nontender to palpation. Normoactive bowel sounds. No hepatosplenomegaly or other masses. EXTREMITIES: No clubbing, cyanosis, or edema. SKIN: No rashes or other lesions noted. NEUROLOGIC: Intact strength and reflexes in all extremities. No facial droop. PSYCHIATRIC: Alert and oriented x3. Normal mood and affect. LABORATORY DATA: CBC with a normal white blood cell count 7.6, neutrophils 95% predominant, bands 3, lymphocytes 1, hemoglobin 12.4, hematocrit 35.6, platelet count is normal. Coagulation profile normal. Complete metabolic panel notable only for glucose of 187. The rest is normal. His troponin was negative x1. His lactic acid was significantly elevated at 5.6, although he had not been vomiting and has been drinking good fluids at home per patient and family. CT of the chest and thorax reviewed the report from the Radiology. This showed no central pulmonary arterial embolism. It did show areas of patchy nonspecific pulmonary parenchymal opacity within the right middle lobe, lingula, and both lower lobes, right greater than left, suspicious for multifocal infectious pneumonitis, although some of this could be and volume loss, and a new nonspecific small pericardial effusion. EKG shows normal sinus rhythm at 65 beats per minute, normal conduction, normal ST segments. No ST elevation. No inverted T-waves. ASSESSMENT: 1. Recurrent pleuritic chest pain. This clinically appears most consistent with pericarditis. The patient does have a new effusion on the CT scan and the pain is worse with lying flat, better with sitting up or leaning forward. It also is sharp in nature. We will give the patient a dose of Toradol here in the emergency room and we will give p.r.n. as needed on the floor. Also, continue morphine as needed. I will go ahead and get an echocardiogram to evaluate this new effusion. At this point, he does not have any evidence of restrictive pericarditis, and his vital signs are now stable, though he did have a little bit of hypotension at one point before he was given fluids earlier. The ER doctor did report him having some tachycardia in the 120s though the nursing notes do not mention anything above 107, and most of the time and even when he 1st came in, he was in the 70s to 80s. We will have Cardiology evaluate the patient in the hospital. We will go ahead and put him on the telemetry floor. 2. Possible pneumonia. The patient did have some ground-glass appearance on his previous CT scan. According to the radiologist's report, the current scan is suboptimal images, but it does appear that he has some new multifocal infiltrates, most concerning for pneumonia. He has a normal white count, but he is on chemotherapy and has leukemia, so I think we can trust that. He has not had any cough or fever, but we will go ahead and treat him with Rocephin and azithromycin for possible pneumonia. We will keep a close eye on his oxygen saturation and his vital signs as well. 3. Sepsis. The patient did have a severely elevated lactate and we will recheck a lactic acid after the fluids. We will go ahead and keep IV fluids running at this time. 4. Gastrointestinal prophylaxis. The patient is on Pepcid twice a day. 5. Deep venous thrombosis prophylaxis. The patient is on Lovenox and Sequential compression devices. 6. Leukemia. He just completed a course of chemotherapy. We will put the patient on isolation precautions. 7. Code status has been discussed with the patient. He is a full code, should he be incapacitated, his would be his medical decision maker, her name is Marleni Márquez. Job ID: [id number]
[2018-11-16 00:29] LABS: Lactic Acid 2.6 mmol/L (0.5-2.2)
[2018-11-16] MEDS ORDERED: Prevnar 13-Val Conj/PF 0.5 ML SYRINGE IM ONE (01:15)
[2018-11-16] MEDS: Famotidine 20 MG TAB PO SCH ×2 (09:10→20:31)
[2018-11-16] MEDS: Enoxaparin Sodium 40 MG/0.4 ML SYRINGE SC SCH (09:10)
[2018-11-16] MEDS: Sodium Chloride 0.9% 1,000 ML IV SCH ×2 (09:11→20:33)
[2018-11-16 13:29] VITALS: BMI 24.5
[2018-11-16] MEDS ORDERED: cefTRIAXone\\ROCEPHIN 2 GM in Sodium Chloride 0.9% 100 ML IVPB SCH (14:00)
[2018-11-16 14:47] LABS: Anion Gap 11 mmol/L (10-20); BUN (Urea Nitrogen) 13 mg/dL (8.9-20.6); Calc. Creatinine Clearance 141 mL/min (70-130); Calcium 8.7 mg/dL (7.8-10.44); Carbon Dioxide 24 mmol/L (22-29); Chloride 105 mmol/L (98-107); Estimated GFR-MDRD Greater than 90; Glucose 211 mg/dL (70-105); Potassium 4.1 mmol/L (3.5-5.1); Sodium 136 mmol/L (136-145)
[2018-11-16] MEDS: Azithromycin 500 MG in Sodium Chloride 0.9% 250 ML 250 ML IVPB SCH (15:17)
[2018-11-16 15:43] LABS: Mean Corpuscular Hemoglobin 31.1 pg (27.0-31.0); Mean Corpuscular Volume 88.9 fL (78.0-98.0); RBC Distribution Width 13.5 % (11.5-14.5); Red Blood Cell (RBC) Count 2.88 mill/uL (4.70-6.10); White Blood Cell (WBC) Count 1.1 thou/uL (4.8-10.8)
[2018-11-16 16:00] LABS: Anisocytosis SLIGHT = 6-15 cells (100X) (0-5/hpf); Band 4 % (5-11); Elliptocytes SLIGHT = 2-5 cells (100X) (0-1/hpf); Lymphocytes 6 % (21-51); MDiff Complete? YES; Mean Platelet Volume 7.3 fL (7.4-10.4); Monocytes 2 % (0-10); Neutrophil 88 % (42-75); PLT Morphology Comment Appears Decreased; Platelet Count 83 thou/uL (130-400); Tear Drops SLIGHT = 2-5 cells (100X) (0-1/hpf)
--- NOTE | 2018-11-17 01:52 | CON ---
DATE OF CONSULTATION: 11/16/2018 TYPE OF CONSULTATION: Cardiology. INDICATION FOR CONSULTATION: The patient is a 47-year-old patient with chest pain. HISTORY OF PRESENT ILLNESS: This very unfortunate 47-year-old gentleman who has been diagnosed with leukemia, has been undergoing chemotherapy started sometime back in May or June. He just completed his last course of chemotherapy on the 13 of November, couple days ago, and then started developing what is actually some right upper lateral anterior chest discomfort but mainly is associated with shoulder pain. He said the pain is worse when he takes deep breath. He has had this apparently after every chemotherapy treatment. He has had this discomfort. He describes as being a sharp type pain. He cannot clearly describe, but his family members are present and they try to interpret. He cannot give a clear description when asked on a scale of 1-10, how bad it was. His first impression was it was a 10, but then he could not clearly describe exactly what the pain felt like. Eventually, he said it seems to be a sharp pain but is worse with inspiration. He has had apparently from his chemotherapy and from the oncologist in [place], he was given tramadol which he says does not help the pain. He was given Tylenol today, which did help the pain. He also said that the pain on the first time he was given morphine, it did not help but the second dose of morphine did help. At this time, he does not have any discomfort unless he takes a breath. He was recently here in September, where he underwent evaluation also for this chest discomfort and it was negative. He had a negative stress test and he also had a normal echocardiogram and had no EKG changes. His enzymes remain negative. He has no evidence of EKG changes or cardiac enzymes at this time, and this does not appear to be a cardiac problem. PAST MEDICAL HISTORY: Significant for leukemia. He has history of diabetes, which is due to steroid treatment for his leukemia and further chemotherapy association. Also, he has had lymph node biopsy due to evaluation given for the leukemia. SOCIAL HISTORY: His children are alive and well. He has no history of tobacco abuse. He is . He has no significant alcohol use. 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 I could not understand exactly what he does, but something to do with windows. ALLERGIES: NONE. MEDICATIONS: Include: 1. Acyclovir. 2. Levofloxacin. 3. Potassium. REVIEW OF SYSTEMS: From what I can ascertain from talking to the family and review of system is unremarkable except what is noted in the history of present illness with his discomfort in the shoulder areas on the right shoulder. PHYSICAL EXAMINATION: GENERAL: Reveals a well-developed, well-nourished gentleman, who is very pleasant. He is in no acute distress. VITAL SIGNS: Blood pressure is 97/59, heart rate is 100 and shows sinus rhythm. His temperature is 99 and respiratory rate is 16. HEENT: Shows the head to be normocephalic and atraumatic. He does have hair loss. I did not hear any carotid bruits. CHEST: Clear to auscultation. CARDIOVASCULAR: Reveals a regular rate and rhythm. There was normal S1, S2. No S3 or S4. There were no significant murmurs, heaves, thrills, bruits, or rubs. ABDOMEN: Soft, nontender. Positive bowel sounds are present. EXTREMITIES: Show no clubbing, cyanosis, or edema. Pedal pulses are present. NEUROLOGICAL: He appears to be fully intact with normal strength, normal tone. SKIN: Warm and dry. LABORATORY DATA: Shows creatinine 0.62, potassium of 4.1, sodium 136, blood sugar 211. Hemoglobin is 9, hematocrit 25.6, WBC is 1.1. Cardiac enzymes are negative. His echocardiogram in September showed ejection fraction of 50% to 55% with left atrial dilatation, but trace mitral and tricuspid valve regurgitation. He had a negative stress test. IMPRESSION: Atypical chest discomfort associated with chemotherapy of uncertain etiology which is causing his discomfort, but does not appear to be cardiac in nature. I would continue his medications. At this time, I have no further cardiac recommendations for this patient. No further workup is indicated at this time. I have suggested the next time he has chemotherapy then perhaps he have some preoperative pain medications or stronger medications post the procedure. This seems to start about 2 days after his chemotherapy has been given and then last for about 2 days and then it usually resolves on its own. He says while he has the pain, it is somewhat unbearable. He has a very low pain threshold and he seems to respond to morphine and also respond to Tylenol today. As far as his other medical history, he does have diabetes which seems to be associated with steroid therapy from his chemotherapy. Otherwise, he has no history of cardiac problems in the past. At this time, I will sign off the patient's case. Should he have any further problems, we will be more than happy to assist with his care if he has any changes from a cardiac status. Job ID: [id number]
[2018-11-17] MEDS ORDERED: traMADol HCl 50 MG TAB PO PRN (07:41)
[2018-11-17] MEDS: Cefepime 2 GM in Sodium Chloride 0.9% 100 ML IVPB SCH ×2 (08:14→20:51)
[2018-11-17] MEDS: Famotidine 20 MG TAB PO SCH ×2 (08:14→20:52)
[2018-11-17] MEDS: Sodium Chloride 0.9% 1,000 ML IV SCH ×2 (08:15→20:55)
[2018-11-17] MEDS: Enoxaparin Sodium 40 MG/0.4 ML SYRINGE SC SCH (08:16)
[2018-11-17 09:09] LABS: Hemoglobin 7.9 g/dL (14.0-18.0); Mean Corpuscular HGB CONC 35.2 g/dL (32.0-36.0); Mean Corpuscular Hemoglobin 31.4 pg (27.0-31.0); Mean Corpuscular Volume 89.2 fL (78.0-98.0); Mean Platelet Volume 7.5 fL (7.4-10.4); Platelet Count 76 thou/uL (130-400); RBC Distribution Width 13.6 % (11.5-14.5); White Blood Cell (WBC) Count 0.2 thou/uL (4.8-10.8)
[2018-11-17 09:16] LABS: Lactic Acid 0.6 mmol/L (0.5-2.2)
[2018-11-17 09:19] LABS: Anion Gap 9 mmol/L (10-20); BUN (Urea Nitrogen) 9 mg/dL (8.9-20.6); Calc. Creatinine Clearance 157 mL/min (70-130); Calcium 9.1 mg/dL (7.8-10.44); Carbon Dioxide 26 mmol/L (22-29); Chloride 106 mmol/L (98-107); Estimated GFR-MDRD Greater than 90; Glucose 122 mg/dL (70-105); Potassium 4.1 mmol/L (3.5-5.1); Sodium 137 mmol/L (136-145)
--- NOTE | 2018-11-17 10:34 | PDOC.PN ---
- Subjective Encounter Start Date: 11/17/18 Encounter Start Time: 08:00 -: old records requested/rev Patient seen and examined. No new complaints. No overnight events - Objective Resuscitation Status - Order Detail: 11/15/18 16:51 Resuscitation Status Routine Resuscitation Status: FULL: Full Resuscitation Discussed with: Patient, , and daughter CECELIA Reviewed: Yes Vital Signs & Weight: Vital Signs (12 hours) Temp Pulse Resp BP Pulse Ox 11/17/18 08:15 96 11/17/18 07:21 99.8 F H 80 16 94/55 L 96 11/17/18 04:55 97.9 F 81 21 H 101/58 L 96 11/17/18 03:24 94 L 11/17/18 00:00 99.3 F 98 17 97/55 L 95 Weight Admit Weight 152 lb 1.903 oz Weight 153 lb 7 oz I&O: 11/16/18 11/17/18 11/18/18 06:59 06:59 06:59 Intake Total 1060 2360 Output Total 700 Balance 1060 1660 Result Diagrams: 11/17/18 08:53 11/17/18 08:53 Additional Labs: Accuchecks 11/17/18 11/16/18 11/16/18 05:56 20:55 16:40 POC Glucose 124 H 190 H 193 H 11/16/18 10:50 POC Glucose 144 H Radiology Reviewed by me: Yes EKG Reviewed by me: Yes (nsr) Phys Exam - Physical Examination Constitutional: NAD HEENT: PERRLA, moist MMs, sclera anicteric Neck: no JVD, supple Respiratory: no wheezing, no rales, no rhonchi Cardiovascular: RRR, no significant murmur, no rub Gastrointestinal: soft, non-tender, no distention, positive bowel sounds Musculoskeletal: no edema, pulses present Neurological: non-focal, normal sensation, moves all 4 limbs Lymphatic: no nodes Psychiatric: normal affect, A&O x 3 Skin: no rash, normal turgor Dx/Plan (1) Multifocal pneumonia Code(s): J18.9 - PNEUMONIA, UNSPECIFIED ORGANISM Status: Acute (2) Lactic acidosis Code(s): E87.2 - ACIDOSIS Status: Acute (3) Pancytopenia Code(s): D61.818 - OTHER PANCYTOPENIA Status: Acute Comment: due to chemo therapy (4) Sepsis Code(s): A41.9 - SEPSIS, UNSPECIFIED ORGANISM Status: Acute (5) Leukemia Code(s): C95.90 - LEUKEMIA, UNSPECIFIED NOT HAVING ACHIEVED REMISSION Status: Chronic - Plan cont current plan of care, plan discussed w/ family, continue antibiotics * change rocephin to cefepime * continue azithromycin * continue IVF * consult oncology * transfer to oncology floor * neutropenic precaution * medication reviewed as below * symptomatic treatment * discussed with * follow culture. Review of Systems - Review of Systems Constitutional: weakness. negative: fever, chills, sweats, malaise, other Respiratory: Cough. negative: Dry, Shortness of Breath, Hemoptysis, SOB with Excertion, Pleuritic Pain, Sputum, Wheezing Cardiovascular: negative: chest pain, palpitations, orthopnea, paroxysmal nocturnal dyspnea, edema, light headedness, other Gastrointestinal: negative: Nausea, Vomiting, Abdominal Pain, Diarrhea, Constipation, Melena, Hematochezia, Other Genitourinary: negative: Dysuria, Frequency, Incontinence, Hematuria, Retention , Other Musculoskeletal: negative: Neck Pain, Shoulder Pain, Arm Pain, Back Pain, Hand Pain, Leg Pain, Foot Pain, Other Skin: negative: Rash, Lesions, Pierce, Bruising, Other - Medications/Allergies Allergies/Adverse Reactions: Allergies Allergy/AdvReac Type Severity Reaction Status Date / Time No Known Allergies Allergy Verified 09/28/18 22:52 Medications: Current Medications Acetaminophen (Tylenol) 650 mg PO Q4H PRN PRN Reason: Headache/Fever/Mild Pain (1-3) Last Admin: 11/16/18 09:10 Dose: 650 mg Acetaminophen (Tylenol) 650 mg OR Q4H PRN PRN Reason: Headache/Fever/Mild Pain (1-3) Dextrose/Water (Dextrose 50%) 25 gm SLOW IVP PRN PRN PRN Reason: Hypoglycemia Enoxaparin Sodium (Lovenox) 40 mg SC 0900 [facility] Last Admin: 11/17/18 08:16 Dose: Not Given Famotidine (Pepcid) 20 mg PO BID [facility] Last Admin: 11/17/18 08:14 Dose: 20 mg Glucagon (Glucagon) 1 mg IM PRN PRN PRN Reason: Hypoglycemia Sodium Chloride (Normal Saline 0.9%) 1,000 mls @ 80 mls/hr IV .[id number] [facility] Last Admin: 11/17/18 08:15 Dose: 1,000 mls Azithromycin 500 mg/ Sodium (Chloride) 250 mls @ 250 mls/hr IVPB 1500 [facility] Last Admin: 11/16/18 15:17 Dose: 250 mls Dextrose/Water (D5w) 1,000 mls @ 0 mls/hr IV .Q0M PRN PRN Reason: Hypoglycemia Cefepime HCl 2 gm/ Sodium (Chloride) 100 mls @ 200 mls/hr IVPB Q12HR [facility] Last Admin: 11/17/18 08:14 Dose: 100 mls Insulin Human Lispro (Humalog) 0 units SC .MILD SLIDING SCALE PRN PRN Reason: Mild Correctional Scale Ketorolac Tromethamine (Toradol) 15 mg IVP Q6H PRN PRN Reason: Pain Stop: 11/20/18 14:00 Morphine Sulfate (Morphine) 2 mg SLOW IVP Q3H PRN PRN Reason: Moderate to Severe Pain (6-10) Ondansetron HCl (Zofran Odt) 4 mg PO Q6H PRN PRN Reason: Nausea/Vomiting Ondansetron HCl (Zofran) 4 mg IVP Q6H PRN PRN Reason: Nausea/Vomiting Senna/Docusate Sodium (Senokot S) 2 tab PO BID PRN PRN Reason: Constipation Sodium Chloride (Flush - Normal Saline) 10 ml IVF Q12HR [facility] Last Admin: 11/17/18 08:15 Dose: Not Given Sodium Chloride (Flush - Normal Saline) 10 ml IVF PRN PRN PRN Reason: Saline Flush Tramadol HCl (Ultram) 50 mg PO Q6H PRN PRN Reason: Pain
[2018-11-17] MEDS ORDERED: Bisacodyl 5 MG TAB PO PRN (11:22)
[2018-11-17] MEDS ORDERED: Calcium Carbonate 500 MG ChewTAB PO PRN (11:22)
[2018-11-17] MEDS ORDERED: HYDROcodone/Acetaminophen 5/325 mg Tablet PO PRN (11:22)
[2018-11-17] MEDS ORDERED: Eucerin (Mineral Oil/Petrolatum,White) 30 gm Jar TOP PRN (11:22)
[2018-11-17] MEDS ORDERED: Loperamide HCl 2 MG CAP PO PRN (11:22)
[2018-11-17] MEDS ORDERED: Loratadine 10 MG TAB PO PRN (11:22)
[2018-11-17] MEDS ORDERED: Zolpidem Tartrate 5 MG TAB PO PRN (11:22)
[2018-11-17] MEDS ORDERED: Artificial Tears 18 DROP/0.9 ML EA EYE PRN (11:22)
[2018-11-17] MEDS ORDERED: hydrALAZINE 20 MG/ML VIAL SLOW IVP PRN (11:22)
[2018-11-17] MEDS ORDERED: Sodium Chloride 0.65% Nasal 44 ML BOT EA NARE PRN (11:22)
[2018-11-17] MEDS ORDERED: Diabetic Tussin 200 MG/10 ML UDCUP PO PRN (11:22)
[2018-11-17] MEDS ORDERED: Cepastat Lozenges 1 LOZ PO PRN (11:22)
[2018-11-17] MEDS ORDERED: valACYclovir 500 MG TAB PO SCH (16:15)
[2018-11-17] MEDS: Azithromycin 500 MG in Sodium Chloride 0.9% 250 ML 250 ML IVPB SCH (16:43)
--- NOTE | 2018-11-17 20:41 | CON ---
DATE OF CONSULTATION: REASON FOR CONSULTATION: History of leukemia. 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 He has been receiving chemotherapy there. The patient speaks [place] only and the history has been difficult to obtain. His last chemotherapy was 2 days prior to hospitalization and the details of chemotherapy are unknown. The patient was to take Valtrex 500 mg p.o. daily and Levaquin 500 mg p.o. daily. He was hospitalized with chest pain, and according to the patient, he had chest pain after the previous cycle of chemotherapy also. This was his 5th cycle. The patient was seen by Dr. Dinero has felt that he does not have a cardiac pain. CT angio showed multiple areas of nonspecific/patchy infiltrate raising the possibility of pneumonia. The patient had normal CBC at the time of hospitalization, but since then, his WBC count has decreased to the current level of , hemoglobin 7.9, and platelet count 76,000. The patient denied of any fever or chills at home. His temperature in the hospital has been 99.9. His temperature today is 99.8. He has been somewhat hypotensive with blood pressure around 89/55 and 103/68. Two blood cultures have been negative. The patient has been on cefepime 2 g IV piggyback q.8 hours. PAST MEDICAL HISTORY: Past history positive for asthma and diabetes. PERSONAL AND SOCIAL HISTORY: The patient drinks 1 to 2 beer a month. He does not smoke and does not do IV drugs. Drugs with adverse effect, none. REVIEW OF SYSTEMS: As above plus he denies chest pain anymore. PHYSICAL EXAMINATION: GENERAL: The patient appears alert and oriented. VITAL SIGNS: Height 5 feet 6 inches, weight 153 pounds, temperature 99.8, pulse 80, blood pressure 94/55. HEENT: Unremarkable. . CHEST: Clear to percussion and auscultation. HEART: Regular rhythm, S1 and S2. ABDOMEN: Soft. Bowel sounds normal. No organomegaly. EXTREMITIES: Without pedal edema. LABORATORY DATA: CBC today shows white cell count of 200 with hemoglobin 7.9 and platelet count of 76,000. Chemistry profile shows normal sodium, potassium, BUN, and creatinine. ASSESSMENT AND RECOMMENDATION: This patient has B-cell acute lymphoblastic leukemia and is on chemotherapy. Currently, he is pancytopenic with severe neutropenia. There is question about pulmonary infiltrate and has low-grade fever. So, I agree with the patient currently receiving antibiotic with cefepime. His CBCs will be monitored daily and should be transfused with red cells if necessary. I do not think he needs platelet transfusion. It will be helpful to try to get hold of his physician at [facility] and see if they want him there. He is likely to be neutropenic for at least several more days. Job ID: [id number]
[2018-11-18 05:54] LABS: Hemoglobin 7.6 g/dL (14.0-18.0); Mean Corpuscular HGB CONC 34.5 g/dL (32.0-36.0); Mean Corpuscular Volume 89.7 fL (78.0-98.0); RBC Distribution Width 13.5 % (11.5-14.5); Red Blood Cell (RBC) Count 2.44 mill/uL (4.70-6.10); White Blood Cell (WBC) Count 0.2 thou/uL (4.8-10.8)
[2018-11-18 05:57] LABS: Anion Gap 12 mmol/L (10-20); BUN (Urea Nitrogen) 7 mg/dL (8.9-20.6); Calc. Creatinine Clearance 149 mL/min (70-130); Calcium 9.1 mg/dL (7.8-10.44); Carbon Dioxide 24 mmol/L (22-29); Chloride 108 mmol/L (98-107); Estimated GFR-MDRD Greater than 90; Glucose 117 mg/dL (70-105); Potassium 3.9 mmol/L (3.5-5.1); Sodium 140 mmol/L (136-145)
[2018-11-18 06:39] LABS: Mean Platelet Volume 7.5 fL (7.4-10.4); PLT Morphology Comment Appears Decreased; Platelet Count 72 thou/uL (130-400); RBC Morphology Normal
[2018-11-18 08:33] VITALS: BP 100/61; TEMP 98.6
[2018-11-18] MEDS ORDERED: valACYclovir 500 MG TAB PO SCH (09:00)
[2018-11-18] MEDS ORDERED: Saccharomyces boulardii 250 MG CAP PO SCH (09:00)
[2018-11-18] MEDS: Famotidine 20 MG TAB PO SCH (09:06)
[2018-11-18] MEDS: Cefepime 2 GM in Sodium Chloride 0.9% 100 ML IVPB SCH (09:07)
[2018-11-18] MEDS: Sodium Chloride 0.9% 1,000 ML IV SCH (09:10)
--- NOTE | 2018-11-18 11:20 | DIS ---
DATE OF ADMISSION: 11/15/2018 DATE OF DISCHARGE: 11/18/2018 PRIMARY CARE PHYSICIAN: Lalo Morin MD DISCHARGE DISPOSITION: Home per the patient request. PRIMARY DISCHARGE DIAGNOSES: 1. Neutropenic fever. 2. Multifocal pneumonia. 3. Lactic acidosis. 4. Sepsis. 5. Pericardial effusion. 6. Pancytopenia after chemotherapy. SECONDARY DISCHARGE DIAGNOSIS: Leukemia. PRIMARY PROCEDURE/OPERATION: None. RADIOLOGICAL INVESTIGATION: CT angiography showed multifocal pneumonia. Echocardiography showed moderate pericardial effusion. SIGNIFICANT LABORATORY DATA: WBC 0.2, hemoglobin 7.6, and platelets 72. INR 1.0. Sodium 140, potassium 3.9, BUN 7, creatinine 0.59, and calcium 9.1. Blood culture negative. DISCHARGE MEDICATION: 1. Omnicef 300 mg twice daily for 7 days. 2. Florastor 250 mg p.o. daily. 3. Valtrex 500 mg daily. 4. Potassium chloride 20 mEq p.o. daily. 5. Tramadol 50 mg q.6 hourly p.r.n. CONTRAINDICATION: None. CODE STATUS: Full code. INPATIENT BREAST PULLER: 1. Yesika Moy MD. 2. Arielle Dinero MD. TEST RESULTS PENDING ON DISCHARGE: None. ALLERGIES: NO KNOWN DRUG ALLERGIES. DISCHARGE PLAN: Posthospital, the patient will follow up with Dr. Lalo Morin. The patient has appointment with MD Barahona oncologist tomorrow. HOSPITAL COURSE: A 47-year-old male with above-mentioned medical problem, who was admitted to the hospital by Dr. Jacobo Mendez. Please see his H and P for further details. This patient has underlying leukemia and he is getting chemotherapy. The patient was brought to ER after recent chemotherapy for generalized weakness, shortness of breath, and cough. In the emergency room, he had CT angiography, which showed bilateral multifocal infiltration. He was having leukopenia, anemia, and thrombocytopenia, all related with his recent chemotherapy as well as possible sepsis. Initially, he had lactic acidosis. Because of that, we did echocardiography, which showed moderate pericardial effusion without any tamponade. Oncology was consulted while in the hospital. This patient is treated with broad-spectrum antibiotic therapy with cefepime and azithromycin. He was also given IV fluid. This patient has appointment with MD Barahona for his leukemia followup and he does not want to miss that appointment and that is why, he requesting to go home today. His blood culture is negative. His vitals are stable. I spoke with the patient's family member about the patient requests to go home and they are okay with going home today. I would change antibiotic therapy to Omnicef today for another 7 days. Plan of care discussed with the patient's daughter, who interpreted for me. PHYSICAL EXAMINATION: VITAL SIGNS: The patient is seen and examined at bedside today. Currently; temperature 98.6, pulse 68, respiratory rate 18, saturation 94% on room air, and blood pressure 100/61. Weight 153 pounds. GENERAL: The patient is currently alert and awake. No obvious acute distress. HEENT: Head, normocephalic and atraumatic. Eyes, pupils are round and reactive to light. Extraocular muscle intact. ENT, oropharynx within normal limits. Moist mucous membranes. No oral lesion. No pharyngeal erythema. No exudate. NECK: Supple. No JVD. No thyromegaly. No carotid bruit. LUNGS: Clear to auscultation without any rhonchi. CARDIAC: S1 and S2. Regular without any murmur. ABDOMEN: Soft and benign. EXTREMITIES: No edema. NEUROLOGIC: Nonfocal examination. The patient is medically stable for discharge today. Job ID: [id number]
== END 2018-11-18 11:47 | disposition home or self-care (01) | DRG 871 ==
LOC: ERS 12:51 → 2NO 16:51 → ONC 11-17 12:14
PROVIDERS: ADMIT Emergency Medicine; ATTEND Emergency Medicine
DX: A41.9 Sepsis, unspecified organism (principal); J18.9 Pneumonia, unspecified organism; D61.810 Antineoplastic chemotherapy induced pancytopenia; E87.2 Acidosis; C91.00 Acute lymphoblastic leukemia not having achieved remission; I31.3 Pericardial effusion (noninflammatory); T45.1X5A Adverse effect of antineoplastic and immunosuppressive drugs, initial encounter; R50.81 Fever presenting with conditions classified elsewhere; E11.9 Type 2 diabetes mellitus without complications; Z79.899 Other long term (current) drug therapy; Z79.2 Long term (current) use of antibiotics
CPT/HCPCS: 36415; 36416; 71275; 80048; 80053; 82550; 83605; 84484; 85025; 85610; 85730; 87040; 93005; 93306; 94640; 96361; 96365; 96367; 96375; 96376; J0456; J0692; J0696; J1650; J1885; J2270; J3010; J7050; J7620